=== PATIENT | female | born 1940 | race Caucasian/White ===

== ENCOUNTER 2018-07-18 15:51 | Observation (INO) ==
[2018-07-18] MEDS ORDERED: SODIUM CHLORIDE 0.9% 500 ML IV STA (16:20)
[2018-07-18 16:52] LABS: Basophils # 0.1 10*3/uL (0.0-0.2); Basophils % 1.1 % (0.0-0.8); Eosinophils # 0.2 10*3/uL (0.0-0.87); Eosinophils % 2.2 % (0.00-10.9); Hematocrit 35.5 VOL% (35.7-47.0); Hemoglobin 9.9 GM/DL (12.0-16.0); Immature Granulocytes % 0.3 %; Immature Granulocytes Absolute 0.02 #; Lymphocytes # 1.4 10*3/uL (1.4-4.0); Lymphocytes % 18.8 % (21.3-54.2); Mean Corpuscular HGB Conc 27.9 GM/DL (32-36); Mean Corpuscular Hemoglobin 20 PG (27-34); Mean Corpuscular Volume 71.3 FL (87-102); Mean Platelet Volume 12.2 FL (9.6-12.0); Monocytes # 0.6 10*3/uL (0.11-0.8); Monocytes % 7.8 % (1.7-12.7); Neutrophils # 5.3 10*3/uL (1.4-7.4); Neutrophils % 69.8 % (38.7-73.9); Platelet Count 329 T/CUMM (130-400); Red Blood Count 4.98 MC/CUMM (3.8-5.5); Red Cell Distribution Width 17.1 % (9.3-17.3); White Blood Count 7.6 T/CUMM (4-12)
[2018-07-18 17:02] LABS: INR 1.2; PT Patient Result 12.8 SECS
[2018-07-18 17:03] LABS: Albumin 4.1 G/DL (3.4-5.0); Bilirubin,Total 0.5 MG/DL (0.2-1.0); Osmolality,Calculated 276.8 MOS/KG (273-304); Potassium 3.8 MMOL/L (3.5-5.1); Total Protein 8.1 G/DL (6.4-8.3)
[2018-07-18 17:26] LABS: Anisocytosis 1+; Elliptocytes 1+; Hypochromasia Slight; Microcytosis 1+; Polychromasia Slight; Tear Drop Cells Few
[2018-07-18 18:06] LABS: Apearance,Urine CLEAR (Clear); Bacteria,Urine Occasional /HPF (Few); Bilirubin,Urine Negative (Negative); Blood, Urine Negative (Negative); Glucose,Urine (UA) Negative (Negative); Hyaline Casts,Urine 18 /LPF (0-3); Ketones,Urine Negative (Negative); Mucus,Urine Occasional /LPF (Occasional); Nitrite,Urine Negative (Negative); Protein,Urine Negative; RBC,Urine <1 /HPF (0-4); Squamous Epithelial Cell,Urine Occasional /HPF (0-10); Urine Color Yellow (Yellow); Urine Specific Gravity 1.012 (1.001-1.035); Urine Urobilinogen < 2.0 EU/DL (0.2-1.0); WBC,Urine 1 /HPF (0-6)
[2018-07-18] MEDS ORDERED: LABETALOL 20 MG/4 ML SYRINGE IV PRN (18:38)
[2018-07-18] MEDS ORDERED: SODIUM CHLORIDE 0.9% 1,000 ML IV SCH (19:30)
[2018-07-18] MEDS: SPIRONOLACTONE 25 MG TABLET PO SCH (21:21)
[2018-07-18] MEDS: APIXABAN 5 MG TABLET PO SCH (21:21)
[2018-07-18] MEDS: diphenhydrAMINE CAP 25 MG CAPSULE PO PRN (22:51)
[2018-07-19 04:14] LABS: Basophils # 0.1 10*3/uL (0.0-0.2); Basophils % 1.1 % (0.0-0.8); Eosinophils # 0.2 10*3/uL (0.0-0.87); Eosinophils % 3.5 % (0.00-10.9); Hemoglobin 8.1 GM/DL (12.0-16.0); Immature Granulocytes % 0.2 %; Immature Granulocytes Absolute 0.01 #; Lymphocytes # 1.6 10*3/uL (1.4-4.0); Lymphocytes % 26.1 % (21.3-54.2); Mean Corpuscular HGB Conc 28.2 GM/DL (32-36); Mean Corpuscular Hemoglobin 20 PG (27-34); Mean Corpuscular Volume 71.9 FL (87-102); Monocytes # 0.6 10*3/uL (0.11-0.8); Monocytes % 8.9 % (1.7-12.7); Neutrophils # 3.7 10*3/uL (1.4-7.4); Neutrophils % 60.2 % (38.7-73.9); Platelet Count 240 T/CUMM (130-400); Red Blood Count 3.99 MC/CUMM (3.8-5.5); Red Cell Distribution Width 16.8 % (9.3-17.3); White Blood Count 6.2 T/CUMM (4-12)
[2018-07-19 04:16] LABS: Hematocrit 28.7 VOL% (35.7-47.0)
[2018-07-19 04:38] LABS: Platelet Estimate Normal; Polychromasia Few
[2018-07-19 04:54] LABS: Osmolality,Calculated 276.7 MOS/KG (273-304); Potassium 3.4 MMOL/L (3.5-5.1); Risk Ratio 2.27; Thyroid Stimulating Hormone 2.07 uIU/ml (0.358-3.74); VLDL CHOLESTEROL 15.8 MG/DL
[2018-07-19] MEDS: LEVOTHYROXINE 100 MCG TABLET PO SCH (06:49)
[2018-07-19] MEDS ORDERED: POTASSIUM CHLORIDE 20 MEQ TABLET PO PRN (06:52)
[2018-07-19] MEDS ORDERED: POTASSIUM CHLORIDE RIDER 10 MEQ in PREMIX 1 EACH IV PRN (06:52)
[2018-07-19] MEDS ORDERED: amLODIPine 5 MG TABLET PO SCH (09:00)
[2018-07-19] MEDS ORDERED: ATORVASTATIN 10 MG TABLET PO SCH (09:00)
[2018-07-19] MEDS ORDERED: FUROSEMIDE 20 MG TABLET PO SCH (09:00)
[2018-07-19] MEDS ORDERED: POTASSIUM CHLORIDE 10 MEQ TABLET PO SCH (09:00)
[2018-07-19] MEDS ORDERED: POTASSIUM CHLORIDE 20 MEQ TABLET PO ONE ×2 (10:45)
[2018-07-19] MEDS: MAGNESIUM CHLORIDE 64 MG TABLET PO SCH (11:03)
[2018-07-19] MEDS: PANTOPRAZOLE 40 MG TABLET PO SCH (11:05)
[2018-07-19] MEDS: ASPIRIN EC 81 MG TABLET PO SCH (11:05)
[2018-07-19] MEDS: APIXABAN 5 MG TABLET PO SCH ×2 (11:09→20:47)
[2018-07-19 11:28] LABS: % Iron Saturation 4.3 % (18-50); Ferritin 6.7 ng/ml (8-252)
[2018-07-19 15:12] LABS: Folate > 24.0 NG/ML (5.4-24.0); Vitamin B12 282 PG/ML (211-911)
[2018-07-19] MEDS: SPIRONOLACTONE 25 MG TABLET PO SCH (18:26)
[2018-07-19] MEDS ORDERED: AMIODARONE 200 MG TABLET PO SCH (18:44)
[2018-07-19] MEDS: AMIODARONE 200 MG TABLET PO SCH (19:29)
[2018-07-19] MEDS: CARVEDILOL 3.125 MG TABLET PO SCH (19:29)
[2018-07-19] MEDS: POTASSIUM CHLORIDE 10 MEQ TABLET PO SCH (19:30)
[2018-07-19] MEDS: FERROUS SULFATE 325 MG TABLET PO SCH (20:47)
[2018-07-19] MEDS ORDERED: ROSUVASTATIN 20 MG TABLET PO SCH (21:00)
[2018-07-19] MEDS ORDERED: ATORVASTATIN 20 MG TABLET PO SCH (21:00)
[2018-07-19] MEDS: diphenhydrAMINE CAP 25 MG CAPSULE PO PRN (21:18)
[2018-07-20 04:44] LABS: Calcium 8.1 MG/DL (8.5-10.1); Osmolality,Calculated 276.5 MOS/KG (273-304); Potassium 4.3 MMOL/L (3.5-5.1)
[2018-07-20 05:03] LABS: Basophils # 0.1 10*3/uL (0.0-0.2); Basophils % 0.9 % (0.0-0.8); Eosinophils # 0.3 10*3/uL (0.0-0.87); Eosinophils % 4.1 % (0.00-10.9); Hematocrit 28.3 VOL% (35.7-47.0); Immature Granulocytes % 0.3 %; Immature Granulocytes Absolute 0.02 #; Lymphocytes # 1.6 10*3/uL (1.4-4.0); Lymphocytes % 23.6 % (21.3-54.2); Mean Corpuscular HGB Conc 27.9 GM/DL (32-36); Mean Corpuscular Hemoglobin 20 PG (27-34); Mean Corpuscular Volume 71.8 FL (87-102); Mean Platelet Volume 12.1 FL (9.6-12.0); Monocytes # 0.6 10*3/uL (0.11-0.8); Monocytes % 8.5 % (1.7-12.7); Neutrophils # 4.1 10*3/uL (1.4-7.4); Neutrophils % 62.6 % (38.7-73.9); Platelet Count 236 T/CUMM (130-400); Red Blood Count 3.94 MC/CUMM (3.8-5.5); Red Cell Distribution Width 16.9 % (9.3-17.3); White Blood Count 6.6 T/CUMM (4-12)
[2018-07-20 05:04] LABS: Hemoglobin 7.9 GM/DL (12.0-16.0)
[2018-07-20 05:40] LABS: Acanthocytes Few; Anisocytosis 1+; Elliptocytes Few; Hypochromasia 1+; Microcytosis 1+
[2018-07-20 05:41] LABS: Platelet Estimate Normal
[2018-07-20] MEDS: LEVOTHYROXINE 100 MCG TABLET PO SCH (06:04)
[2018-07-20] MEDS ORDERED: SODIUM CHLORIDE 0.9% 1,000 ML IV SCH (08:00)
[2018-07-20] MEDS ORDERED: MIDAZOLAM 10 MG/2 ML VIAL ONE (08:52)
[2018-07-20] MEDS ORDERED: PROMETHAZINE 25 MG/1 ML VIAL ONE (08:52)
[2018-07-20] MEDS ORDERED: CYANOCOBALAMIN 1000 MCG/1 ML VIAL IM ONE (11:45)
[2018-07-20] MEDS: CARVEDILOL 3.125 MG TABLET PO SCH ×2 (12:58→18:50)
[2018-07-20] MEDS: APIXABAN 5 MG TABLET PO SCH (12:59)
[2018-07-20] MEDS: AMIODARONE 200 MG TABLET PO SCH (12:59)
[2018-07-20] MEDS: FERROUS SULFATE 325 MG TABLET PO SCH (12:59)
[2018-07-20] MEDS: POTASSIUM CHLORIDE 10 MEQ TABLET PO SCH (12:59)
[2018-07-20] MEDS: ASPIRIN EC 81 MG TABLET PO SCH (12:59)
[2018-07-20] MEDS: MAGNESIUM CHLORIDE 64 MG TABLET PO SCH (13:00)
[2018-07-20] MEDS: PANTOPRAZOLE 40 MG TABLET PO SCH (13:00)
[2018-07-20 16:34] VITALS: BP 103/49
== END 2018-07-20 18:44 | disposition home or self-care (01) ==
LOC: N.ED 15:51 → N.EDINP 15:51 → SUATTDRO 18:38 → N.EDINP 19:48 → N.4E 20:35
PROVIDERS: ADMIT Hospitalist; ATTEND Family Medicine

== ENCOUNTER 2018-07-28 06:00 | Observation (INO) ==
[2018-07-28] MEDS ORDERED: FUROSEMIDE 100 MG/10 ML VIAL IV STA (06:21)
[2018-07-28 07:14] LABS: Albumin 3.6 G/DL (3.4-5.0); Bilirubin,Total 0.5 MG/DL (0.2-1.0); Calcium 8.5 MG/DL (8.5-10.1); Osmolality,Calculated 274.7 MOS/KG (273-304); Potassium 4.3 MMOL/L (3.5-5.1); Total Protein 6.7 G/DL (6.4-8.3)
[2018-07-28 07:16] LABS: Apearance,Urine CLEAR (Clear); Bilirubin,Urine Negative (Negative); Blood, Urine Negative (Negative); Glucose,Urine (UA) Negative (Negative); Ketones,Urine Negative (Negative); Nitrite,Urine Negative (Negative); Protein,Urine Negative; RBC,Urine 1 /HPF (0-4); Urine Color Straw (Yellow); Urine Specific Gravity 1.005 (1.001-1.035); Urine Urobilinogen < 2.0 EU/DL (0.2-1.0); WBC,Urine 1 /HPF (0-6)
[2018-07-28 08:20] LABS: Basophils # 0.1 10*3/uL (0.0-0.2); Basophils % 1.1 % (0.0-0.8); Eosinophils # 0.2 10*3/uL (0.0-0.87); Eosinophils % 3.4 % (0.00-10.9); Hematocrit 32.9 VOL% (35.7-47.0); Hemoglobin 9.3 GM/DL (12.0-16.0); Immature Granulocytes % 0.6 %; Immature Granulocytes Absolute 0.04 #; Lymphocytes # 0.9 10*3/uL (1.4-4.0); Lymphocytes % 13.7 % (21.3-54.2); Mean Corpuscular HGB Conc 28.3 GM/DL (32-36); Mean Corpuscular Hemoglobin 21 PG (27-34); Mean Corpuscular Volume 73.3 FL (87-102); Mean Platelet Volume 11.6 FL (9.6-12.0); Monocytes # 0.4 10*3/uL (0.11-0.8); Monocytes % 6.6 % (1.7-12.7); Neutrophils # 4.9 10*3/uL (1.4-7.4); Neutrophils % 74.6 % (38.7-73.9); Platelet Count 280 T/CUMM (130-400); Red Blood Count 4.49 MC/CUMM (3.8-5.5); Red Cell Distribution Width 20.1 % (9.3-17.3); White Blood Count 6.5 T/CUMM (4-12)
[2018-07-28 08:23] LABS: Elliptocytes Few; Hypochromasia 1+; Microcytosis 1+; Platelet Estimate Adequate
[2018-07-28] MEDS ORDERED: ACETAMINOPHEN 325 MG TABLET PO PRN (10:16)
[2018-07-28] MEDS ORDERED: DOCUSATE SODIUM 100 MG CAPSULE PO PRN (10:16)
[2018-07-28] MEDS ORDERED: ONDANSETRON 4 MG/2 ML VIAL IV PRN (10:16)
[2018-07-28] MEDS ORDERED: ENOXAPARIN 40 MG/0.4 ML SYRINGE SUBCUT SCH (10:30)
[2018-07-28] MEDS ORDERED: FUROSEMIDE 40 MG/4 ML VIAL IV SCH (16:00)
[2018-07-28] MEDS: CARVEDILOL 3.125 MG TABLET PO SCH (19:03)
[2018-07-28] MEDS ORDERED: ZALEPLON 5 MG CAPSULE PO ONE (20:34)
[2018-07-28] MEDS: APIXABAN 5 MG TABLET PO SCH (21:15)
[2018-07-28] MEDS: FERROUS SULFATE 325 MG TABLET PO SCH (21:15)
[2018-07-29 06:07] LABS: Calcium 8.3 MG/DL (8.5-10.1); Osmolality,Calculated 279.4 MOS/KG (273-304); Potassium 3.2 MMOL/L (3.5-5.1)
[2018-07-29 06:16] LABS: Basophils # 0.1 10*3/uL (0.0-0.2); Basophils % 0.7 % (0.0-0.8); Eosinophils # 0.3 10*3/uL (0.0-0.87); Eosinophils % 4.1 % (0.00-10.9); Hematocrit 28.5 VOL% (35.7-47.0); Immature Granulocytes % 0.6 %; Immature Granulocytes Absolute 0.04 #; Lymphocytes # 1.6 10*3/uL (1.4-4.0); Lymphocytes % 23.9 % (21.3-54.2); Mean Corpuscular HGB Conc 27.7 GM/DL (32-36); Mean Corpuscular Hemoglobin 20 PG (27-34); Mean Corpuscular Volume 73.3 FL (87-102); Mean Platelet Volume 11.9 FL (9.6-12.0); Monocytes # 0.6 10*3/uL (0.11-0.8); Monocytes % 9.1 % (1.7-12.7); Neutrophils # 4.2 10*3/uL (1.4-7.4); Neutrophils % 61.6 % (38.7-73.9); Platelet Count 250 T/CUMM (130-400); Red Blood Count 3.89 MC/CUMM (3.8-5.5); Red Cell Distribution Width 19.9 % (9.3-17.3); White Blood Count 6.8 T/CUMM (4-12)
[2018-07-29 06:18] LABS: Hemoglobin 7.9 GM/DL (12.0-16.0)
[2018-07-29 06:24] LABS: Platelet Estimate Decreased
[2018-07-29 06:25] LABS: Polychromasia Few
[2018-07-29] MEDS ORDERED: LEVOTHYROXINE 100 MCG TABLET PO SCH (07:00)
[2018-07-29] MEDS ORDERED: POTASSIUM CHLORIDE 20 MEQ TABLET PO ONE (07:57)
[2018-07-29] MEDS: CARVEDILOL 3.125 MG TABLET PO SCH (08:45)
[2018-07-29] MEDS: APIXABAN 5 MG TABLET PO SCH (08:46)
[2018-07-29] MEDS: FERROUS SULFATE 325 MG TABLET PO SCH (08:47)
[2018-07-29] MEDS ORDERED: PANTOPRAZOLE 40 MG TABLET PO SCH (09:00)
[2018-07-29] MEDS ORDERED: POTASSIUM CHLORIDE 10 MEQ TABLET PO SCH (09:00)
[2018-07-29] MEDS ORDERED: MAGNESIUM CHLORIDE 64 MG TABLET PO SCH (09:00)
[2018-07-29] MEDS ORDERED: ASPIRIN EC 81 MG TABLET PO SCH (09:00)
[2018-07-29] MEDS ORDERED: FUROSEMIDE 40 MG/4 ML VIAL IV SCH (09:00)
[2018-07-29] MEDS ORDERED: ATORVASTATIN 10 MG TABLET PO SCH (09:00)
[2018-07-29] MEDS ORDERED: AMIODARONE 200 MG TABLET PO SCH (09:00)
[2018-07-29 12:15] VITALS: BP 126/50
== END 2018-07-29 12:40 | disposition home or self-care (01) ==
LOC: N.ED 06:00 → N.EDINP 06:00 → INTOOBSV 10:15 → OBSVTOIN 10:15 → N.4E 14:20
PROVIDERS: ADMIT Internal Medicine; ATTEND Internal Medicine

== ENCOUNTER 2018-08-11 07:59 | Inpatient (IN) ==
[2018-08-11] MEDS ORDERED: ONDANSETRON 4 MG/2 ML VIAL IV STA (09:45)
[2018-08-11] MEDS ORDERED: ALBUTEROL/IPRATROPIUM 3 ML NEB RESP TX STA (09:45)
[2018-08-11 09:54] LABS: Neutrophils # 3.9 10*3/uL (1.4-7.4)
[2018-08-11 09:57] LABS: INR 1.2; PT Patient Result 12.8 SECS
[2018-08-11 10:00] LABS: Basophils # 0.1 10*3/uL (0.0-0.2); Basophils % 1.4 % (0.0-0.8); Eosinophils # 0.2 10*3/uL (0.0-0.87); Eosinophils % 4.1 % (0.00-10.9); Hematocrit 35.7 VOL% (35.7-47.0); Hemoglobin 9.6 GM/DL (12.0-16.0); Immature Granulocytes % 0.5 %; Immature Granulocytes Absolute 0.03 #; Lymphocytes # 1.2 10*3/uL (1.4-4.0); Lymphocytes % 20.1 % (21.3-54.2); Mean Corpuscular HGB Conc 26.9 GM/DL (32-36); Mean Corpuscular Hemoglobin 21 PG (27-34); Mean Corpuscular Volume 77.9 FL (87-102); Mean Platelet Volume 11.8 FL (9.6-12.0); Monocytes # 0.4 10*3/uL (0.11-0.8); Monocytes % 7.5 % (1.7-12.7); Neutrophils % 66.4 % (38.7-73.9); Platelet Count 274 T/CUMM (130-400); Red Blood Count 4.58 MC/CUMM (3.8-5.5); Red Cell Distribution Width 22.5 % (9.3-17.3); White Blood Count 5.9 T/CUMM (4-12)
[2018-08-11 10:12] LABS: Albumin 3.6 G/DL (3.4-5.0); Bilirubin,Total 0.5 MG/DL (0.2-1.0); Calcium 8.8 MG/DL (8.5-10.1); Osmolality,Calculated 279.4 MOS/KG (273-304); Potassium 4.2 MMOL/L (3.5-5.1); Total Protein 7.2 G/DL (6.4-8.3)
[2018-08-11 10:13] LABS: Hypochromasia 1+
[2018-08-11 10:14] LABS: Elliptocytes Few; Platelet Estimate Adequate
[2018-08-11 10:15] LABS: Microcytosis 1+
[2018-08-11 10:40] LABS: Apearance,Urine Slightly Hazy (Clear); Bilirubin,Urine Negative (Negative); Blood, Urine Negative (Negative); Glucose,Urine (UA) Negative (Negative); Ketones,Urine Negative (Negative); Mucus,Urine Occasional /LPF (Occasional); Nitrite,Urine Negative (Negative); Protein,Urine Negative; Squamous Epithelial Cell,Urine Occasional /HPF (0-10); Urine Color Yellow (Yellow); Urine Specific Gravity 1.012 (1.001-1.035); Urine Urobilinogen < 2.0 EU/DL (0.2-1.0); WBC,Urine 1 /HPF (0-6)
[2018-08-11] MEDS ORDERED: methylPREDNISolone SOD SUC 125 MG/2 ML VIAL IV STA (10:49)
[2018-08-11] MEDS ORDERED: ALBUTEROL/IPRATROPIUM 3 ML NEB RESP TX PRN (15:03)
[2018-08-11] MEDS: CARVEDILOL 3.125 MG TABLET PO SCH (16:36)
[2018-08-11] MEDS ORDERED: diphenhydrAMINE CAP 50 MG CAPSULE PO ONE (20:46)
[2018-08-11] MEDS: FERROUS SULFATE 325 MG TABLET PO SCH (21:20)
[2018-08-11] MEDS: ACETAMINOPHEN 325 MG TABLET PO PRN (21:20)
[2018-08-11] MEDS: APIXABAN 5 MG TABLET PO SCH (21:20)
[2018-08-12 06:19] LABS: Albumin 3.3 G/DL (3.4-5.0); Bilirubin,Total 0.8 MG/DL (0.2-1.0); Calcium 8.6 MG/DL (8.5-10.1); Osmolality,Calculated 278.5 MOS/KG (273-304); Total Protein 6.5 G/DL (6.4-8.3)
[2018-08-12 06:33] LABS: Basophils % 0.2 % (0.0-0.8); Hematocrit 30.1 VOL% (35.7-47.0); Hemoglobin 8.5 GM/DL (12.0-16.0); Immature Granulocytes % 0.7 %; Immature Granulocytes Absolute 0.07 #; Lymphocytes # 0.6 10*3/uL (1.4-4.0); Lymphocytes % 5.6 % (21.3-54.2); Mean Corpuscular HGB Conc 28.2 GM/DL (32-36); Mean Corpuscular Hemoglobin 21 PG (27-34); Mean Corpuscular Volume 75.1 FL (87-102); Mean Platelet Volume 12.2 FL (9.6-12.0); Monocytes # 0.3 10*3/uL (0.11-0.8); Monocytes % 2.7 % (1.7-12.7); Neutrophils # 9.1 10*3/uL (1.4-7.4); Neutrophils % 90.8 % (38.7-73.9); Platelet Count 242 T/CUMM (130-400); Red Blood Count 4.01 MC/CUMM (3.8-5.5); Red Cell Distribution Width 21.9 % (9.3-17.3)
[2018-08-12] MEDS: LEVOTHYROXINE 100 MCG TABLET PO SCH (06:35)
[2018-08-12 06:36] LABS: Lymphocytes 2 % (20-55); Segmented Neutrophils 97 % (50-85); Total Cells Counted 100
[2018-08-12 06:37] LABS: Elliptocytes Few; Hypochromasia 1+; Microcytosis Slight; Platelet Estimate Adequate
[2018-08-12] MEDS ORDERED: FUROSEMIDE 40 MG/4 ML VIAL IV ONE (08:23)
[2018-08-12] MEDS: ATORVASTATIN 10 MG TABLET PO SCH (09:00)
[2018-08-12] MEDS: MAGNESIUM CHLORIDE 64 MG TABLET PO SCH (09:00)
[2018-08-12] MEDS: APIXABAN 5 MG TABLET PO SCH ×2 (09:01→21:19)
[2018-08-12] MEDS: FUROSEMIDE 20 MG TABLET PO SCH (09:01)
[2018-08-12] MEDS: PANTOPRAZOLE 40 MG TABLET PO SCH (09:02)
[2018-08-12] MEDS: CARVEDILOL 3.125 MG TABLET PO SCH ×2 (09:05→19:26)
[2018-08-12] MEDS: FERROUS SULFATE 325 MG TABLET PO SCH ×2 (09:05→21:19)
[2018-08-12] MEDS: AMIODARONE 200 MG TABLET PO SCH (09:05)
[2018-08-12] MEDS: methylPREDNISolone SOD SUC 40 MG/1 ML VIAL IV SCH ×2 (09:06→21:20)
[2018-08-12] MEDS: ASPIRIN EC 81 MG TABLET PO SCH (09:07)
[2018-08-12] MEDS: DOCUSATE SODIUM 100 MG CAPSULE PO PRN (09:10)
[2018-08-12] MEDS: POTASSIUM CHLORIDE 10 MEQ TABLET PO SCH (10:57)
[2018-08-12] MEDS: BUDESONIDE/FORMOTEROL 160-4.5 INHALER 6 GM INH SCH ×2 (10:57→21:20)
[2018-08-12] MEDS: ACETAMINOPHEN 325 MG TABLET PO PRN (21:19)
[2018-08-13 05:49] LABS: Alanine Aminotransferase 25 U/L (13-56); Albumin 3.3 G/DL (3.4-5.0); Alkaline Phosphatase 76 U/L (45-117); Aspartate Amino Transferase 16 U/L (0-37); Bilirubin,Total < 0.39 MG/DL (0.2-1.0); Blood Urea Nitrogen 24 MG/DL (7-18); Calcium 8.4 MG/DL (8.5-10.1); Glucose 138 MG/DL (74-106); Osmolality,Calculated 278.8 MOS/KG (273-304); Potassium 4.4 MMOL/L (3.5-5.1); Sodium 137 MMOL/L (136-145); Total Protein 6.6 G/DL (6.4-8.3)
[2018-08-13 05:57] LABS: Basophils % 0.1 % (0.0-0.8); Hematocrit 30.6 VOL% (35.7-47.0); Immature Granulocytes % 1.2 %; Immature Granulocytes Absolute 0.18 #; Lymphocytes # 0.5 10*3/uL (1.4-4.0); Lymphocytes % 3.6 % (21.3-54.2); Mean Corpuscular HGB Conc 27.8 GM/DL (32-36); Mean Corpuscular Hemoglobin 21 PG (27-34); Mean Corpuscular Volume 76.7 FL (87-102); Mean Platelet Volume 11.9 FL (9.6-12.0); Monocytes # 0.3 10*3/uL (0.11-0.8); Monocytes % 1.7 % (1.7-12.7); Neutrophils # 14.1 10*3/uL (1.4-7.4); Neutrophils % 93.4 % (38.7-73.9); Platelet Count 272 T/CUMM (130-400); Red Blood Count 3.99 MC/CUMM (3.8-5.5); Red Cell Distribution Width 22.3 % (9.3-17.3); White Blood Count 15.1 T/CUMM (4-12)
[2018-08-13 06:05] LABS: Hemoglobin 8.5 GM/DL (12.0-16.0)
[2018-08-13 06:10] LABS: Hypochromasia 1+; Lymphocytes 4 % (20-55); Microcytosis Slight; Ovalocytes Slight; Platelet Estimate Adequate; Segmented Neutrophils 96 % (50-85); Total Cells Counted 100
[2018-08-13] MEDS: LEVOTHYROXINE 100 MCG TABLET PO SCH (06:38)
[2018-08-13] MEDS: POTASSIUM CHLORIDE 10 MEQ TABLET PO SCH (09:01)
[2018-08-13] MEDS: DOCUSATE SODIUM 100 MG CAPSULE PO PRN (09:01)
[2018-08-13] MEDS: FUROSEMIDE 20 MG TABLET PO SCH (09:01)
[2018-08-13] MEDS: MAGNESIUM CHLORIDE 64 MG TABLET PO SCH (09:01)
[2018-08-13] MEDS: PANTOPRAZOLE 40 MG TABLET PO SCH (09:01)
[2018-08-13] MEDS: ASPIRIN EC 81 MG TABLET PO SCH (09:01)
[2018-08-13] MEDS: APIXABAN 5 MG TABLET PO SCH ×2 (09:01→21:16)
[2018-08-13] MEDS: FERROUS SULFATE 325 MG TABLET PO SCH ×2 (09:02→21:16)
[2018-08-13] MEDS: CARVEDILOL 3.125 MG TABLET PO SCH ×2 (09:02→17:45)
[2018-08-13] MEDS: AMIODARONE 200 MG TABLET PO SCH (09:02)
[2018-08-13] MEDS: BUDESONIDE/FORMOTEROL 160-4.5 INHALER 6 GM INH SCH ×2 (09:03→22:17)
[2018-08-13] MEDS: methylPREDNISolone SOD SUC 40 MG/1 ML VIAL IV SCH ×2 (09:03→21:16)
[2018-08-13] MEDS: FUROSEMIDE 40 MG TABLET PO SCH (14:32)
[2018-08-13] MEDS: ATORVASTATIN 10 MG TABLET PO SCH (14:33)
[2018-08-13] MEDS: ACETAMINOPHEN 325 MG TABLET PO PRN (22:16)
[2018-08-14 06:20] LABS: Albumin 3.3 G/DL (3.4-5.0); Bilirubin,Total 0.7 MG/DL (0.2-1.0); Calcium 8.3 MG/DL (8.5-10.1); Osmolality,Calculated 282.7 MOS/KG (273-304); Potassium 4.4 MMOL/L (3.5-5.1); Total Protein 6.3 G/DL (6.4-8.3)
[2018-08-14] MEDS: LEVOTHYROXINE 100 MCG TABLET PO SCH (06:20)
[2018-08-14 06:52] LABS: Basophils % 0.1 % (0.0-0.8); Hematocrit 31.2 VOL% (35.7-47.0); Hemoglobin 8.6 GM/DL (12.0-16.0); Immature Granulocytes % 1.1 %; Immature Granulocytes Absolute 0.16 #; Lymphocytes # 0.6 10*3/uL (1.4-4.0); Lymphocytes % 4.3 % (21.3-54.2); Mean Corpuscular HGB Conc 27.6 GM/DL (32-36); Mean Corpuscular Hemoglobin 21 PG (27-34); Mean Corpuscular Volume 77.2 FL (87-102); Mean Platelet Volume 11.8 FL (9.6-12.0); Monocytes # 0.4 10*3/uL (0.11-0.8); Neutrophils # 13.3 10*3/uL (1.4-7.4); Neutrophils % 91.5 % (38.7-73.9); Platelet Count 262 T/CUMM (130-400); Red Blood Count 4.04 MC/CUMM (3.8-5.5); Red Cell Distribution Width 22.7 % (9.3-17.3); White Blood Count 14.5 T/CUMM (4-12)
[2018-08-14 06:59] LABS: Hypochromasia 2+; Lymphocytes 5 % (20-55); Segmented Neutrophils 94 % (50-85); Total Cells Counted 100
[2018-08-14 07:00] LABS: Acanthocytes Few; Elliptocytes Few; Microcytosis 1+; Polychromasia Slight
[2018-08-14 07:01] LABS: Platelet Estimate Normal; Tear Drop Cells Slight
[2018-08-14 07:13] VITALS: BP 150/70
[2018-08-14] MEDS: DOCUSATE SODIUM 100 MG CAPSULE PO PRN (09:18)
[2018-08-14] MEDS: FERROUS SULFATE 325 MG TABLET PO SCH (09:19)
[2018-08-14] MEDS: POTASSIUM CHLORIDE 10 MEQ TABLET PO SCH (09:19)
[2018-08-14] MEDS: FUROSEMIDE 40 MG TABLET PO SCH (09:19)
[2018-08-14] MEDS: CARVEDILOL 3.125 MG TABLET PO SCH (09:20)
[2018-08-14] MEDS: ASPIRIN EC 81 MG TABLET PO SCH (09:20)
[2018-08-14] MEDS: AMIODARONE 200 MG TABLET PO SCH (09:20)
[2018-08-14] MEDS: MAGNESIUM CHLORIDE 64 MG TABLET PO SCH (09:21)
[2018-08-14] MEDS: APIXABAN 5 MG TABLET PO SCH (09:21)
[2018-08-14] MEDS: ATORVASTATIN 10 MG TABLET PO SCH (09:21)
[2018-08-14] MEDS: PANTOPRAZOLE 40 MG TABLET PO SCH (09:21)
[2018-08-14] MEDS: BUDESONIDE/FORMOTEROL 160-4.5 INHALER 6 GM INH SCH (09:21)
[2018-08-14] MEDS: methylPREDNISolone SOD SUC 40 MG/1 ML VIAL IV SCH (09:22)
== END 2018-08-14 14:36 | disposition home or self-care (01) | DRG 291 ==
LOC: N.ED 07:59 → N.EDINP 11:26 → SUATTDRO 11:26 → N.EDINP 14:00 → N.5E 14:12
PROVIDERS: ADMIT Internal Medicine Cardiovascular Disease; ATTEND Internal Medicine

== ENCOUNTER 2019-03-24 21:56 | Observation (INO) ==
[2019-03-24] MEDS ORDERED: FUROSEMIDE 100 MG/10 ML VIAL IV STA (22:37)
[2019-03-24 22:46] LABS: Basophils % 0.3 % (0.0-0.8); Eosinophils # 0.1 10*3/uL (0.0-0.87); Hematocrit 41.2 VOL% (35.7-47.0); Hemoglobin 13.2 GM/DL (12.0-16.0); Immature Granulocytes % 0.4 %; Immature Granulocytes Absolute 0.04 #; Lymphocytes # 0.4 10*3/uL (1.4-4.0); Lymphocytes % 4.1 % (21.3-54.2); Mean Corpuscular Volume 91.6 FL (87-102); Mean Platelet Volume 13.2 FL (9.6-12.0); Monocytes % 4.3 % (1.7-12.7); Neutrophils % 89.9 % (38.7-73.9); Platelet Count 152 T/CUMM (130-400); Red Cell Distribution Width 14.2 % (9.3-17.3); White Blood Count 9.5 T/CUMM (4-12)
[2019-03-24 22:57] LABS: Albumin 3.7 G/DL (3.4-5.0); Bilirubin,Total 0.6 MG/DL (0.2-1.0); Calcium 9.1 MG/DL (8.5-10.1); Osmolality,Calculated 278.7 MOS/KG (273-304); Total Protein 7.1 G/DL (6.4-8.3)
[2019-03-25 00:09] LABS: Band Neutrophils 1 % (0-10); Lymphocytes 4 % (20-55); Platelet Estimate Adequate; Segmented Neutrophils 91 % (50-85); Total Cells Counted 100
[2019-03-25] MEDS ORDERED: ACETAMINOPHEN 325 MG TABLET PO PRN (00:20)
[2019-03-25] MEDS ORDERED: ONDANSETRON 4 MG/2 ML VIAL IV PRN (00:20)
[2019-03-25] MEDS ORDERED: FUROSEMIDE 40 MG/4 ML VIAL IV SCH (00:30)
[2019-03-25 04:24] LABS: Basophils % 0.4 % (0.0-0.8); Eosinophils # 0.1 10*3/uL (0.0-0.87); Eosinophils % 1.3 % (0.00-10.9); Hematocrit 39.5 VOL% (35.7-47.0); Hemoglobin 12.6 GM/DL (12.0-16.0); Immature Granulocytes Absolute 0.08 #; Lymphocytes # 0.5 10*3/uL (1.4-4.0); Mean Corpuscular HGB Conc 31.9 GM/DL (32-36); Mean Corpuscular Volume 91.9 FL (87-102); Mean Platelet Volume 13.1 FL (9.6-12.0); Monocytes % 5.5 % (1.7-12.7); Neutrophils % 84.8 % (38.7-73.9); Platelet Count 144 T/CUMM (130-400); Red Cell Distribution Width 14.3 % (9.3-17.3); White Blood Count 7.8 T/CUMM (4-12)
[2019-03-25 04:46] LABS: Albumin 3.7 G/DL (3.4-5.0); Bilirubin,Total 0.9 MG/DL (0.2-1.0); Osmolality,Calculated 285.1 MOS/KG (273-304); Total Protein 6.4 G/DL (6.4-8.3)
[2019-03-25] MEDS: PANTOPRAZOLE 40 MG TABLET PO SCH (08:27)
[2019-03-25] MEDS ORDERED: AZITHROMYCIN INJ 500 MG in SODIUM CHLORIDE 0.9% 250 ML IV ONE (10:55)
[2019-03-25] MEDS: ATORVASTATIN 10 MG TABLET PO SCH (11:31)
[2019-03-25] MEDS: APIXABAN 5 MG TABLET PO SCH ×2 (11:31→20:25)
[2019-03-25] MEDS: POTASSIUM CHLORIDE 10 MEQ TABLET PO SCH (11:31)
[2019-03-25] MEDS: ASPIRIN EC 81 MG TABLET PO SCH (11:31)
[2019-03-25] MEDS: MAGNESIUM CHLORIDE 64 MG TABLET PO SCH (11:31)
[2019-03-25] MEDS: AMIODARONE 200 MG TABLET PO SCH (11:31)
[2019-03-25] MEDS: carvediloL 3.125 MG TABLET PO SCH (16:08)
[2019-03-25] MEDS: FUROSEMIDE 40 MG/4 ML VIAL IV SCH (22:06)
[2019-03-26] MEDS ORDERED: LEVOTHYROXINE 100 MCG TABLET PO SCH (07:00)
[2019-03-26] MEDS: FUROSEMIDE 40 MG/4 ML VIAL IV SCH (08:58)
[2019-03-26] MEDS: MAGNESIUM CHLORIDE 64 MG TABLET PO SCH (08:58)
[2019-03-26] MEDS: AMIODARONE 200 MG TABLET PO SCH (08:58)
[2019-03-26] MEDS: ASPIRIN EC 81 MG TABLET PO SCH (08:58)
[2019-03-26] MEDS: carvediloL 3.125 MG TABLET PO SCH (08:58)
[2019-03-26] MEDS: PANTOPRAZOLE 40 MG TABLET PO SCH (08:58)
[2019-03-26] MEDS: POTASSIUM CHLORIDE 10 MEQ TABLET PO SCH (08:58)
[2019-03-26] MEDS: APIXABAN 5 MG TABLET PO SCH (08:58)
[2019-03-26] MEDS: ATORVASTATIN 10 MG TABLET PO SCH (08:59)
[2019-03-26] MEDS ORDERED: AZITHROMYCIN INJ 250 MG in SODIUM CHLORIDE 0.9% 250 ML IV SCH (11:00)
[2019-03-26 12:03] VITALS: BP 130/53
== END 2019-03-26 13:24 | disposition home or self-care (01) ==
LOC: N.EDINP 21:56 → N.ED 21:56 → N.TELEN 03-25 00:55
PROVIDERS: ADMIT Family Medicine; ATTEND Family Medicine

== ENCOUNTER 2019-10-28 04:06 | Inpatient (IN) ==
[2019-10-28] MEDS ORDERED: ALBUTEROL/IPRATROPIUM 3 ML NEB RESP TX STA (04:52)
[2019-10-28 05:50] LABS: Basophils # 0.1 10*3/uL (0.0-0.2); Basophils % 0.8 % (0.0-0.8); Eosinophils # 0.3 10*3/uL (0.0-0.87); Eosinophils % 4.6 % (0.00-10.9); Hemoglobin 11.7 GM/DL (12.0-16.0); Immature Granulocytes % 0.5 %; Immature Granulocytes Absolute 0.03 #; Lymphocytes # 1.6 10*3/uL (1.4-4.0); Lymphocytes % 25.6 % (21.3-54.2); Mean Corpuscular Volume 90.1 FL (87-102); Mean Platelet Volume 13.2 FL (9.6-12.0); Monocytes % 8.2 % (1.7-12.7); Neutrophils % 60.3 % (38.7-73.9); Platelet Count 188 T/CUMM (130-400); Red Blood Count 4.33 MC/CUMM (3.8-5.5); Red Cell Distribution Width 14.8 % (9.3-17.3); White Blood Count 6.2 T/CUMM (4-12)
[2019-10-28] MEDS ORDERED: FUROSEMIDE 100 MG/10 ML VIAL IV STA (05:50)
[2019-10-28 05:53] LABS: Albumin 3.3 G/DL (3.4-5.0); Bilirubin,Total 0.5 MG/DL (0.2-1.0); Total Protein 7.4 G/DL (6.4-8.3)
[2019-10-28] MEDS ORDERED: FUROSEMIDE 40 MG/4 ML VIAL IV STA (05:55)
[2019-10-28] MEDS ORDERED: ONDANSETRON 4 MG/2 ML VIAL IV PRN (07:28)
[2019-10-28] MEDS ORDERED: MAGNESIUM SULF RIDER 2 GM in PREMIX 1 EACH IV PRN (07:28)
[2019-10-28] MEDS ORDERED: MAGNESIUM SULF RIDER 4 GM in PREMIX 1 EACH IV PRN (07:28)
[2019-10-28] MEDS ORDERED: MORPHINE 4 MG/1 ML VIAL IV PRN (07:28)
[2019-10-28] MEDS ORDERED: ENOXAPARIN 40 MG/0.4 ML SYRINGE SUBCUT SCH (09:00)
[2019-10-28] MEDS: POTASSIUM CHLORIDE 20 MEQ TABLET PO PRN (10:50)
[2019-10-28] MEDS ORDERED: ALBUTEROL/IPRATROPIUM 3 ML NEB RESP TX ONE (10:55)
[2019-10-28] MEDS: PANTOPRAZOLE 40 MG TABLET PO SCH (11:17)
[2019-10-28] MEDS ORDERED: ALBUTEROL 2.5 MG/3 ML NEB RESP TX PRN (11:57)
[2019-10-28] MEDS ORDERED: ACETAMINOPHEN 325 MG TABLET PO PRN (11:57)
[2019-10-28 12:00] LABS: Hypochromasia 2+; Ovalocytes Few; Polychromasia Slight; Schistocytes Slight
[2019-10-28 12:01] LABS: Platelet Estimate Adequate
[2019-10-28] MEDS: ALBUTEROL/IPRATROPIUM 3 ML NEB RESP TX SCH ×2 (12:02→19:15)
[2019-10-28] MEDS: LOSARTAN 25 MG TABLET PO SCH (14:33)
[2019-10-28] MEDS: carvediloL 3.125 MG TABLET PO SCH (17:45)
[2019-10-28] MEDS: ASCORBIC ACID 500 MG TABLET PO SCH (21:53)
[2019-10-28] MEDS: APIXABAN 5 MG TABLET PO SCH (21:53)
[2019-10-29] MEDS: ALBUTEROL/IPRATROPIUM 3 ML NEB RESP TX SCH ×4 (01:00→19:22)
[2019-10-29 05:39] LABS: Basophils # 0.1 10*3/uL (0.0-0.2); Eosinophils # 0.3 10*3/uL (0.0-0.87); Eosinophils % 4.1 % (0.00-10.9); Hematocrit 33.7 VOL% (35.7-47.0); Hemoglobin 10.1 GM/DL (12.0-16.0); Immature Granulocytes % 0.3 %; Immature Granulocytes Absolute 0.02 #; Lymphocytes # 1.2 10*3/uL (1.4-4.0); Lymphocytes % 20.2 % (21.3-54.2); Mean Corpuscular Volume 89.4 FL (87-102); Mean Platelet Volume 12.5 FL (9.6-12.0); Monocytes % 9.6 % (1.7-12.7); Neutrophils % 64.8 % (38.7-73.9); Platelet Count 162 T/CUMM (130-400); Red Blood Count 3.77 MC/CUMM (3.8-5.5); Red Cell Distribution Width 14.7 % (9.3-17.3); White Blood Count 6.1 T/CUMM (4-12)
[2019-10-29] MEDS: LEVOTHYROXINE 88 MCG TABLET PO SCH (06:20)
[2019-10-29 06:23] LABS: Risk Ratio 2.47; VLDL CHOLESTEROL 12.4 MG/DL
[2019-10-29 06:30] LABS: Calcium 8.8 MG/DL (8.5-10.1); Osmolality,Calculated 273.8 MOS/KG (273-304)
[2019-10-29] MEDS ORDERED: PANTOPRAZOLE 40 MG TABLET PO SCH (09:00)
[2019-10-29] MEDS: POTASSIUM CHLORIDE 20 MEQ TABLET PO PRN (09:23)
[2019-10-29] MEDS: POTASSIUM CHLORIDE 10 MEQ TABLET PO SCH (09:24)
[2019-10-29] MEDS: ASPIRIN EC 81 MG TABLET PO SCH (09:24)
[2019-10-29] MEDS: carvediloL 3.125 MG TABLET PO SCH ×2 (09:25→16:44)
[2019-10-29] MEDS: APIXABAN 5 MG TABLET PO SCH (09:25)
[2019-10-29] MEDS: PANTOPRAZOLE 40 MG TABLET PO SCH (09:25)
[2019-10-29] MEDS: ATORVASTATIN 10 MG TABLET PO SCH (09:25)
[2019-10-29] MEDS: LOSARTAN 25 MG TABLET PO SCH (09:25)
[2019-10-29] MEDS: ASCORBIC ACID 500 MG TABLET PO SCH ×2 (09:25→21:04)
[2019-10-29] MEDS: FUROSEMIDE 40 MG/4 ML VIAL IV SCH (09:28)
[2019-10-29] MEDS: MAGNESIUM CHLORIDE 64 MG TABLET PO SCH (09:30)
[2019-10-29] MEDS: AMIODARONE 200 MG TABLET PO SCH (09:39)
[2019-10-30] MEDS: ALBUTEROL/IPRATROPIUM 3 ML NEB RESP TX SCH ×4 (00:53→21:14)
[2019-10-30] MEDS: LEVOTHYROXINE 88 MCG TABLET PO SCH (06:37)
[2019-10-30] MEDS: PANTOPRAZOLE 40 MG TABLET PO SCH (09:06)
[2019-10-30] MEDS: LOSARTAN 25 MG TABLET PO SCH (09:06)
[2019-10-30] MEDS: POTASSIUM CHLORIDE 10 MEQ TABLET PO SCH (09:06)
[2019-10-30] MEDS: ATORVASTATIN 10 MG TABLET PO SCH (09:06)
[2019-10-30] MEDS: MAGNESIUM CHLORIDE 64 MG TABLET PO SCH (09:06)
[2019-10-30] MEDS: ASCORBIC ACID 500 MG TABLET PO SCH ×2 (09:07→21:16)
[2019-10-30] MEDS: FUROSEMIDE 40 MG/4 ML VIAL IV SCH (09:07)
[2019-10-30] MEDS: carvediloL 3.125 MG TABLET PO SCH ×2 (09:07→16:04)
[2019-10-30] MEDS: ASPIRIN EC 81 MG TABLET PO SCH (09:07)
[2019-10-30] MEDS: AMIODARONE 200 MG TABLET PO SCH (09:07)
[2019-10-31] MEDS: ALBUTEROL/IPRATROPIUM 3 ML NEB RESP TX SCH ×4 (01:50→19:28)
[2019-10-31 06:00] LABS: Calcium 8.6 MG/DL (8.5-10.1); Osmolality,Calculated 277.8 MOS/KG (273-304)
[2019-10-31] MEDS: LEVOTHYROXINE 88 MCG TABLET PO SCH (06:06)
[2019-10-31] MEDS: POTASSIUM CHLORIDE 10 MEQ TABLET PO SCH (09:32)
[2019-10-31] MEDS: AMIODARONE 200 MG TABLET PO SCH (09:33)
[2019-10-31] MEDS: ASCORBIC ACID 500 MG TABLET PO SCH ×2 (09:33→21:56)
[2019-10-31] MEDS: PANTOPRAZOLE 40 MG TABLET PO SCH (09:33)
[2019-10-31] MEDS: MAGNESIUM CHLORIDE 64 MG TABLET PO SCH (09:34)
[2019-10-31] MEDS: ATORVASTATIN 10 MG TABLET PO SCH (09:34)
[2019-10-31] MEDS: carvediloL 3.125 MG TABLET PO SCH ×2 (09:34→16:57)
[2019-10-31] MEDS: FUROSEMIDE 40 MG TABLET PO SCH (09:34)
[2019-10-31] MEDS: ENOXAPARIN 40 MG/0.4 ML SYRINGE SUBCUT SCH (09:35)
[2019-10-31] MEDS: ASPIRIN EC 81 MG TABLET PO SCH (09:35)
[2019-10-31] MEDS: LOSARTAN 25 MG TABLET PO SCH (09:35)
[2019-11-01] MEDS: ALBUTEROL/IPRATROPIUM 3 ML NEB RESP TX SCH ×4 (00:07→19:28)
[2019-11-01 05:50] LABS: Basophils # 0.1 10*3/uL (0.0-0.2); Basophils % 0.8 % (0.0-0.8); Eosinophils # 0.3 10*3/uL (0.0-0.87); Eosinophils % 4.4 % (0.00-10.9); Hematocrit 35.7 VOL% (35.7-47.0); Immature Granulocytes % 0.5 %; Immature Granulocytes Absolute 0.03 #; Lymphocytes # 1.3 10*3/uL (1.4-4.0); Lymphocytes % 20.8 % (21.3-54.2); Mean Corpuscular HGB Conc 30.8 GM/DL (32-36); Mean Corpuscular Volume 88.1 FL (87-102); Mean Platelet Volume 12.2 FL (9.6-12.0); Neutrophils % 62.5 % (38.7-73.9); Platelet Count 177 T/CUMM (130-400); Red Blood Count 4.05 MC/CUMM (3.8-5.5); White Blood Count 6.2 T/CUMM (4-12)
[2019-11-01 06:04] LABS: Osmolality,Calculated 275.1 MOS/KG (273-304)
[2019-11-01] MEDS: LEVOTHYROXINE 88 MCG TABLET PO SCH (06:19)
[2019-11-01] MEDS ORDERED: LIDOCAINE 1% 20 ML VIAL ONE (07:19)
[2019-11-01] MEDS ORDERED: ceFAZolin 1,000 MG VIAL ONE (07:20)
[2019-11-01] MEDS ORDERED: DIAZEPAM 5 MG TABLET PO ONE (07:30)
[2019-11-01] MEDS ORDERED: ceFAZolin 1,000 MG in SYRINGE 1 EACH IV ONE (07:30)
[2019-11-01] MEDS ORDERED: diphenhydrAMINE CAP 25 MG CAPSULE PO ONE (07:30)
[2019-11-01] MEDS ORDERED: ceFAZolin 1,000 MG VIAL IRRIG ONE (07:30)
[2019-11-01] MEDS: carvediloL 3.125 MG TABLET PO SCH ×2 (07:47→16:17)
[2019-11-01] MEDS: FUROSEMIDE 40 MG TABLET PO SCH (08:32)
[2019-11-01] MEDS: ASPIRIN EC 81 MG TABLET PO SCH (08:32)
[2019-11-01] MEDS: LOSARTAN 25 MG TABLET PO SCH (08:32)
[2019-11-01] MEDS: POTASSIUM CHLORIDE 10 MEQ TABLET PO SCH (08:32)
[2019-11-01] MEDS: AMIODARONE 200 MG TABLET PO SCH (08:32)
[2019-11-01] MEDS: ATORVASTATIN 10 MG TABLET PO SCH (08:32)
[2019-11-01] MEDS ORDERED: fentaNYL 100 MCG/2 ML VIAL ONE (08:33)
[2019-11-01] MEDS: PANTOPRAZOLE 40 MG TABLET PO SCH (08:33)
[2019-11-01] MEDS ORDERED: MIDAZOLAM 2 MG/2 ML VIAL ONE ×2 (08:33→09:09)
[2019-11-01] MEDS: ENOXAPARIN 40 MG/0.4 ML SYRINGE SUBCUT SCH (08:33)
[2019-11-01] MEDS: ASCORBIC ACID 500 MG TABLET PO SCH ×2 (08:34→21:49)
[2019-11-01] MEDS: MAGNESIUM CHLORIDE 64 MG TABLET PO SCH (08:34)
[2019-11-01] MEDS ORDERED: TISSUE ADHESIVE 1 EACH APPLICATOR TOP ONE (10:32)
[2019-11-02] MEDS: ALBUTEROL/IPRATROPIUM 3 ML NEB RESP TX SCH ×2 (01:07→07:36)
[2019-11-02] MEDS: LEVOTHYROXINE 88 MCG TABLET PO SCH (06:24)
[2019-11-02 08:32] VITALS: BP 109/53
[2019-11-02] MEDS: POTASSIUM CHLORIDE 10 MEQ TABLET PO SCH (09:28)
[2019-11-02] MEDS: LOSARTAN 25 MG TABLET PO SCH (09:29)
[2019-11-02] MEDS: carvediloL 3.125 MG TABLET PO SCH (09:29)
[2019-11-02] MEDS: ATORVASTATIN 10 MG TABLET PO SCH (09:29)
[2019-11-02] MEDS: FUROSEMIDE 40 MG TABLET PO SCH (09:29)
[2019-11-02] MEDS: ASPIRIN EC 81 MG TABLET PO SCH (09:29)
[2019-11-02] MEDS: AMIODARONE 200 MG TABLET PO SCH (09:29)
[2019-11-02] MEDS: MAGNESIUM CHLORIDE 64 MG TABLET PO SCH (09:29)
[2019-11-02] MEDS: ASCORBIC ACID 500 MG TABLET PO SCH (09:29)
[2019-11-02] MEDS: PANTOPRAZOLE 40 MG TABLET PO SCH (09:29)
== END 2019-11-02 12:27 | disposition home or self-care (01) | DRG 242 ==
LOC: N.EDINP 04:06 → N.ED 04:06 → N.EDINP 08:57 → N.TELES 08:58
PROVIDERS: ADMIT Family Medicine; ATTEND Family Medicine

== ENCOUNTER 2020-08-25 21:28 | Observation (INO) ==
[2020-08-25] MEDS ORDERED: MEPERIDINE 25 MG/1 ML VIAL IV STA (22:01)
[2020-08-25] MEDS ORDERED: ASPIRIN 325 MG TABLET PO STA (22:01)
[2020-08-25] MEDS ORDERED: NITROGLYCERIN 2% OINT 1 INCH/GM PACK TOP STA (22:01)
[2020-08-25] MEDS ORDERED: ONDANSETRON 4 MG/2 ML VIAL IV STA (22:01)
[2020-08-25 22:16] LABS: Basophils # 0.1 10*3/uL (0.0-0.2); Basophils % 0.8 % (0.0-0.8); Eosinophils # 0.3 10*3/uL (0.0-0.87); Hematocrit 36.5 VOL% (35.7-47.0); Immature Granulocytes % 0.3 %; Immature Granulocytes Absolute 0.02 #; Lymphocytes # 2.1 10*3/uL (1.4-4.0); Lymphocytes % 28.3 % (21.3-54.2); Mean Corpuscular HGB Conc 30.1 GM/DL (32-36); Mean Corpuscular Volume 83.9 FL (87-102); Neutrophils % 56.6 % (38.7-73.9); Platelet Count 200 T/CUMM (130-400); Red Blood Count 4.35 MC/CUMM (3.8-5.5); Red Cell Distribution Width 15.8 % (9.3-17.3); White Blood Count 7.3 T/CUMM (4-12)
[2020-08-25 22:22] LABS: INR 1.2
[2020-08-25 22:38] LABS: Albumin 3.5 G/DL (3.4-5.0); Bilirubin,Total 1.1 MG/DL (0.2-1.0); Calcium 8.5 MG/DL (8.5-10.1); Potassium 3.6 MMOL/L (3.5-5.1); Total Protein 6.9 G/DL (6.4-8.2)
[2020-08-25 22:51] LABS: Elliptocytes 1+; Hypochromasia 3+; Platelet Estimate Normal
[2020-08-26] MEDS ORDERED: fentaNYL 100 MCG/2 ML VIAL IV STA (00:57)
[2020-08-26] MEDS: INSULIN REGULAR 100 UNIT/ML SUBCUT SCH ×2 (03:45→06:52)
[2020-08-26] MEDS ORDERED: SODIUM CHLORIDE 0.9% 1,000 ML IV SCH (03:45)
[2020-08-26] MEDS ORDERED: ACETAMINOPHEN 325 MG TABLET PO PRN (03:45)
[2020-08-26] MEDS ORDERED: GLUCAGON 1 MG VIAL IM PRN (03:45)
[2020-08-26] MEDS ORDERED: DEXTROSE 50% 25 GM/50 ML VIAL IV PRN (03:45)
[2020-08-26] MEDS ORDERED: MEPERIDINE 25 MG/1 ML VIAL IV PRN (03:45)
[2020-08-26] MEDS ORDERED: ONDANSETRON 4 MG/2 ML VIAL IV PRN (03:45)
[2020-08-26 04:16] LABS: Basophils # 0.1 10*3/uL (0.0-0.2); Basophils % 0.7 % (0.0-0.8); Eosinophils # 0.3 10*3/uL (0.0-0.87); Eosinophils % 3.6 % (0.00-10.9); Hematocrit 32.5 VOL% (35.7-47.0); Hemoglobin 9.8 GM/DL (12.0-16.0); Immature Granulocytes % 0.4 %; Immature Granulocytes Absolute 0.03 #; Lymphocytes # 1.5 10*3/uL (1.4-4.0); Lymphocytes % 20.3 % (21.3-54.2); Mean Corpuscular HGB Conc 30.2 GM/DL (32-36); Mean Platelet Volume 12.4 FL (9.6-12.0); Monocytes % 7.3 % (1.7-12.7); Neutrophils % 67.7 % (38.7-73.9); Platelet Count 171 T/CUMM (130-400); Red Blood Count 3.87 MC/CUMM (3.8-5.5); Red Cell Distribution Width 15.8 % (9.3-17.3); White Blood Count 7.2 T/CUMM (4-12)
[2020-08-26 04:42] LABS: Bilirubin,Total 0.7 MG/DL (0.2-1.0); Calcium 8.2 MG/DL (8.5-10.1); Osmolality,Calculated 283.1 MOS/KG (273-304); Potassium 3.2 MMOL/L (3.5-5.1); Total Protein 6.4 G/DL (6.4-8.2); VLDL CHOLESTEROL 9.4 MG/DL
[2020-08-26 04:45] LABS: Troponin I < 0.015 NG/ML (0.00-0.045)
[2020-08-26] MEDS ORDERED: PANTOPRAZOLE 40 MG VIAL IV SCH (09:00)
[2020-08-26] MEDS ORDERED: DOCUSATE SODIUM 100 MG CAPSULE PO SCH (09:00)
[2020-08-26] MEDS ORDERED: AMIODARONE 200 MG TABLET PO SCH (10:30)
[2020-08-26] MEDS ORDERED: APIXABAN 5 MG TABLET PO SCH (10:30)
[2020-08-26 13:56] VITALS: BP 143/54
[2020-08-26] MEDS ORDERED: carvediloL 3.125 MG TABLET PO SCH (17:00)
[2020-08-27] MEDS ORDERED: PANTOPRAZOLE 40 MG TABLET PO SCH (09:00)
[2020-08-27] MEDS ORDERED: POTASSIUM CHLORIDE 10 MEQ TABLET PO SCH (09:00)
[2020-08-27] MEDS ORDERED: ATORVASTATIN 10 MG TABLET PO SCH (09:00)
[2020-08-27] MEDS ORDERED: ASPIRIN EC 81 MG TABLET PO SCH (09:00)
[2020-08-27] MEDS ORDERED: FUROSEMIDE 40 MG TABLET PO SCH (09:00)
[2020-08-27] MEDS ORDERED: MAGNESIUM CHLORIDE 64 MG TABLET PO SCH (09:00)
[2020-08-27] MEDS ORDERED: LEVOTHYROXINE 75 MCG TABLET PO SCH (09:00)
== END 2020-08-26 13:02 | disposition home or self-care (01) ==
LOC: N.EDINP 21:28 → N.ED 21:28 → N.EDINP 08-26 13:01
PROVIDERS: ADMIT Family Medicine; ATTEND Family Medicine

== ENCOUNTER 2021-03-03 04:05 | Observation (INO) ==
[2021-03-03] MEDS ORDERED: ONDANSETRON 4 MG/2 ML VIAL IV STA (04:40)
[2021-03-03] MEDS ORDERED: FUROSEMIDE 100 MG/10 ML VIAL IV STA (04:40)
[2021-03-03] MEDS ORDERED: ALBUTEROL/IPRATROPIUM 3 ML NEB RESP TX STA (04:40)
[2021-03-03 05:07] LABS: INR 1.2; PT Patient Result 13.3 SECS (10.5-12.0); Partial Thromboplastin Time 24.6 SECS (23.9-33.8)
[2021-03-03 05:12] LABS: Albumin 3.2 G/DL (3.4-5.0); Bilirubin,Total 0.5 MG/DL (0.20-1.00); Calcium 8.3 MG/DL (8.5-10.1); Potassium 3.8 MMOL/L (3.5-5.1); Total Protein 6.9 G/DL (6.4-8.2)
[2021-03-03 05:15] LABS: Basophils # 0.1 10*3/uL (0.0-0.2); Basophils % 0.8 % (0.0-0.8); Eosinophils # 0.3 10*3/uL (0.0-0.87); Eosinophils % 4.5 % (0.00-10.9); Hematocrit 32.7 VOL% (35.7-47.0); Hemoglobin 9.4 GM/DL (12.0-16.0); Immature Granulocytes % 0.7 %; Immature Granulocytes Absolute 0.05 #; Lymphocytes # 1.2 10*3/uL (1.4-4.0); Lymphocytes % 16.2 % (21.3-54.2); Mean Corpuscular HGB Conc 28.7 GM/DL (32-36); Mean Platelet Volume 12.6 FL (9.6-12.0); Monocytes % 7.2 % (1.7-12.7); Neutrophils % 70.6 % (38.7-73.9); Platelet Count 235 T/CUMM (130-400); Red Blood Count 4.14 MC/CUMM (3.8-5.5); Red Cell Distribution Width 16.5 % (9.3-17.3); White Blood Count 7.5 T/CUMM (4-12)
[2021-03-03 05:31] LABS: Hypochromasia 1+; Microcytosis 1+; Ovalocytes Few; Platelet Estimate Normal
[2021-03-03] MEDS ORDERED: ACETAMINOPHEN 325 MG TABLET PO PRN (11:15)
[2021-03-03] MEDS ORDERED: ONDANSETRON 4 MG/2 ML VIAL IV PRN (11:15)
[2021-03-03] MEDS: cefTRIAXone 1,000 MG in SODIUM CHLORIDE 0.9% 100 ML IV SCH (11:30)
[2021-03-03] MEDS: PANTOPRAZOLE 40 MG TABLET PO SCH (13:24)
[2021-03-03] MEDS: DOCUSATE SODIUM 100 MG CAPSULE PO SCH ×2 (13:24→21:14)
[2021-03-03] MEDS ORDERED: ALBUTEROL/IPRATROPIUM 3 ML NEB RESP TX PRN (13:54)
[2021-03-03 15:45] LABS: Bacteria,Urine Occasional /HPF (Few); Bilirubin,Urine Negative (Negative); Blood, Urine Negative (Negative); Glucose,Urine (UA) Negative (Negative); Ketones,Urine Negative (Negative); Mucus,Urine Occasional /LPF (Occasional); Nitrite,Urine Negative (Negative); Protein,Urine Negative; RBC,Urine <1 /HPF (0-4); Urine Appearance CLEAR (Clear); Urine Color Colorless (Yellow); Urine Specific Gravity 1.005 (1.001-1.035); Urine Urobilinogen < 2.0 EU/DL (0.2-1.0)
[2021-03-03] MEDS: APIXABAN 5 MG TABLET PO SCH ×2 (16:28→21:14)
[2021-03-03] MEDS: AMIODARONE 200 MG TABLET PO SCH (16:28)
[2021-03-03] MEDS: carvediloL 3.125 MG TABLET PO SCH (18:15)
[2021-03-03] MEDS: ASCORBIC ACID 500 MG TABLET PO SCH (21:14)
[2021-03-04 06:06] LABS: Basophils # 0.1 10*3/uL (0.0-0.2); Basophils % 0.9 % (0.0-0.8); Eosinophils # 0.3 10*3/uL (0.0-0.87); Eosinophils % 5.6 % (0.00-10.9); Hematocrit 28.7 VOL% (35.7-47.0); Hemoglobin 8.5 GM/DL (12.0-16.0); Immature Granulocytes % 0.4 %; Immature Granulocytes Absolute 0.02 #; Lymphocytes % 18.5 % (21.3-54.2); Mean Corpuscular HGB Conc 29.6 GM/DL (32-36); Mean Corpuscular Volume 80.2 FL (87-102); Mean Platelet Volume 11.8 FL (9.6-12.0); Monocytes % 9.7 % (1.7-12.7); Neutrophils % 64.9 % (38.7-73.9); Platelet Count 176 T/CUMM (130-400); Red Blood Count 3.58 MC/CUMM (3.8-5.5); Red Cell Distribution Width 16.1 % (9.3-17.3); White Blood Count 5.4 T/CUMM (4-12)
[2021-03-04] MEDS ORDERED: LEVOTHYROXINE 75 MCG TABLET PO SCH (06:30)
[2021-03-04 07:08] LABS: Thyroid Stimulating Hormone 4.81 uIU/ml (0.358-3.74)
[2021-03-04 07:09] LABS: Albumin 2.8 G/DL (3.4-5.0); Bilirubin,Total 1.1 MG/DL (0.20-1.00); Osmolality,Calculated 284.1 MOS/KG (273-304); Potassium 2.8 MMOL/L (3.5-5.1); Total Protein 6.2 G/DL (6.4-8.2)
[2021-03-04] MEDS: carvediloL 3.125 MG TABLET PO SCH (08:27)
[2021-03-04] MEDS: DOCUSATE SODIUM 100 MG CAPSULE PO SCH (08:27)
[2021-03-04] MEDS: APIXABAN 5 MG TABLET PO SCH (08:27)
[2021-03-04] MEDS: ASCORBIC ACID 500 MG TABLET PO SCH (08:27)
[2021-03-04] MEDS: AMIODARONE 200 MG TABLET PO SCH (08:27)
[2021-03-04] MEDS: PANTOPRAZOLE 40 MG TABLET PO SCH (08:28)
[2021-03-04] MEDS: cefTRIAXone 1,000 MG in SODIUM CHLORIDE 0.9% 100 ML IV SCH (08:28)
[2021-03-04] MEDS ORDERED: MAGNESIUM CHLORIDE 64 MG TABLET PO SCH (09:00)
[2021-03-04] MEDS ORDERED: ASPIRIN EC 81 MG TABLET PO SCH (09:00)
[2021-03-04] MEDS ORDERED: POTASSIUM CHLORIDE 10 MEQ TABLET PO SCH (09:00)
[2021-03-04] MEDS ORDERED: CYANOCOBALAMIN 500 MCG TABLET PO SCH (09:00)
[2021-03-04] MEDS ORDERED: PANTOPRAZOLE 40 MG TABLET PO SCH (09:00)
[2021-03-04] MEDS ORDERED: FUROSEMIDE 40 MG TABLET PO SCH (09:00)
[2021-03-04] MEDS ORDERED: ATORVASTATIN 10 MG TABLET PO SCH (09:00)
[2021-03-04] MEDS ORDERED: BUDESONIDE/FORMOTEROL 160-4.5 INHALER 6 GM INH SCH (09:11)
[2021-03-04 12:05] VITALS: BP 111/63
== END 2021-03-04 12:11 | disposition home or self-care (01) ==
LOC: N.ED 04:05 → N.EDINP 04:05 → N.5E 17:03
PROVIDERS: ADMIT Family Medicine; ATTEND Family Medicine

== ENCOUNTER 2021-03-22 08:30 | Inpatient (IN) ==
[2021-03-22 11:39] LABS: Bacteria,Urine Occasional /HPF (Few); Bilirubin,Urine Negative (Negative); Blood, Urine Negative (Negative); Glucose,Urine (UA) Negative (Negative); Hyaline Casts,Urine 4 /LPF (0-3); Ketones,Urine Negative (Negative); Mucus,Urine Occasional /LPF (Occasional); Nitrite,Urine Negative (Negative); Protein,Urine 30 MG/DL; RBC,Urine 8 /HPF (0-4); Squamous Epithelial Cell,Urine Occasional /HPF (0-10); Urine Appearance CLEAR (Clear); Urine Color Yellow (Yellow); Urine Specific Gravity 1.018 (1.001-1.035)
[2021-03-22] MEDS ORDERED: traMADol 50 MG TABLET PO STA (12:49)
[2021-03-22] MEDS ORDERED: DEXAMETHASONE 4 MG/1 ML VIAL IM STA (13:17)
[2021-03-22] MEDS ORDERED: methylPREDNISolone ACETATE 40 MG/1 ML VIAL IM STA (13:17)
[2021-03-22] MEDS ORDERED: CYCLOBENZAPRINE 10 MG TABLET PO STA (14:05)
[2021-03-22] MEDS ORDERED: ONDANSETRON 4 MG/2 ML VIAL IV PRN (15:54)
[2021-03-22] MEDS ORDERED: NALOXONE 0.4 MG/ML VIAL IV PRN (15:58)
[2021-03-22] MEDS: MORPHINE 2 MG/1 ML SYRINGE IV PRN (18:13)
[2021-03-22] MEDS: DOCUSATE SODIUM 100 MG CAPSULE PO SCH (22:43)
[2021-03-23] MEDS: PANTOPRAZOLE 40 MG TABLET PO SCH (09:27)
[2021-03-23] MEDS: DOCUSATE SODIUM 100 MG CAPSULE PO SCH ×2 (09:28→20:50)
[2021-03-23] MEDS: CYCLOBENZAPRINE 10 MG TABLET PO PRN (09:29)
[2021-03-23 12:43] LABS: Basophils % 0.2 % (0.0-0.8); Immature Granulocytes % 1.4 %; Immature Granulocytes Absolute 0.19 #; Lymphocytes # 0.9 10*3/uL (1.4-4.0); Lymphocytes % 6.2 % (21.3-54.2); Mean Corpuscular HGB Conc 28.6 GM/DL (32-36); Mean Platelet Volume 11.8 FL (9.6-12.0); Monocytes % 8.1 % (1.7-12.7); Neutrophils % 84.1 % (38.7-73.9); Platelet Count 230 T/CUMM (130-400); Red Blood Count 3.86 MC/CUMM (3.8-5.5); Red Cell Distribution Width 16.8 % (9.3-17.3); White Blood Count 13.9 T/CUMM (4-12)
[2021-03-23 12:45] LABS: Hematocrit 30.1 VOL% (35.7-47.0); Hemoglobin 8.6 GM/DL (12.0-16.0)
[2021-03-23 13:05] LABS: Albumin 2.6 G/DL (3.4-5.0); Bilirubin,Total 0.7 MG/DL (0.20-1.00); Calcium 8.7 MG/DL (8.5-10.1); Osmolality,Calculated 275.7 MOS/KG (273-304); Potassium 3.2 MMOL/L (3.5-5.1); Total Protein 6.7 G/DL (6.4-8.2)
[2021-03-23] MEDS ORDERED: PANTOPRAZOLE 40 MG TABLET PO SCH (14:00)
[2021-03-23] MEDS: CYANOCOBALAMIN 500 MCG TABLET PO SCH (14:35)
[2021-03-23] MEDS: BUDESONIDE/FORMOTEROL 160-4.5 INHALER 6 GM INH SCH ×2 (14:35→20:50)
[2021-03-23] MEDS: AMIODARONE 200 MG TABLET PO SCH (14:35)
[2021-03-23] MEDS: FUROSEMIDE 40 MG TABLET PO SCH (14:35)
[2021-03-23 14:43] LABS: Hypochromasia 2+
[2021-03-23 14:44] LABS: Anisocytosis 2+; Elliptocytes Few
[2021-03-23 14:45] LABS: Acanthocytes Few; Platelet Estimate Normal
[2021-03-23] MEDS ORDERED: POTASSIUM CHLORIDE 20 MEQ TABLET PO ONE (15:00)
[2021-03-23] MEDS: carvediloL 3.125 MG TABLET PO SCH (16:39)
[2021-03-23] MEDS: MORPHINE 2 MG/1 ML SYRINGE IV PRN (18:02)
[2021-03-23] MEDS: ATORVASTATIN 10 MG TABLET PO SCH (20:49)
[2021-03-23] MEDS: GABAPENTIN 300 MG CAPSULE PO SCH (20:49)
[2021-03-24] MEDS: ACETAMINOPHEN 325 MG TABLET PO PRN (00:03)
[2021-03-24] MEDS: MORPHINE 2 MG/1 ML SYRINGE IV PRN (00:03)
[2021-03-24 02:04] LABS: ABG Base Excess 1.1 MMOL/L (-2.5-2.5); ABG HCO3 25.4 MMOL/L (20-26); ABG PCO2 34.9 MM HG (35-48); ABG PH 7.459 (7.35-7.45)
[2021-03-24] MEDS: LEVOTHYROXINE 75 MCG TABLET PO SCH (05:43)
[2021-03-24] MEDS: POTASSIUM CHLORIDE 10 MEQ TABLET PO SCH (09:11)
[2021-03-24] MEDS: MAGNESIUM CHLORIDE 64 MG TABLET PO SCH (09:11)
[2021-03-24] MEDS: PANTOPRAZOLE 40 MG TABLET PO SCH (09:11)
[2021-03-24] MEDS: GABAPENTIN 300 MG CAPSULE PO SCH ×2 (09:12→20:37)
[2021-03-24] MEDS: AMIODARONE 200 MG TABLET PO SCH (09:12)
[2021-03-24] MEDS: CYANOCOBALAMIN 500 MCG TABLET PO SCH (09:12)
[2021-03-24] MEDS: carvediloL 3.125 MG TABLET PO SCH ×2 (09:12→18:04)
[2021-03-24] MEDS: DOCUSATE SODIUM 100 MG CAPSULE PO SCH ×2 (09:12→22:11)
[2021-03-24] MEDS: FUROSEMIDE 40 MG TABLET PO SCH (09:12)
[2021-03-24] MEDS: BUDESONIDE/FORMOTEROL 160-4.5 INHALER 6 GM INH SCH ×2 (09:12→20:38)
[2021-03-24] MEDS: ALBUTEROL/IPRATROPIUM 3 ML NEB RESP TX SCH ×2 (14:00→20:25)
[2021-03-24] MEDS: ATORVASTATIN 10 MG TABLET PO SCH (20:37)
[2021-03-25] MEDS: ALBUTEROL/IPRATROPIUM 3 ML NEB RESP TX SCH ×4 (00:35→11:34)
[2021-03-25 05:02] LABS: Basophils % 0.4 % (0.0-0.8); Eosinophils # 0.2 10*3/uL (0.0-0.87); Eosinophils % 2.3 % (0.00-10.9); Hematocrit 26.7 VOL% (35.7-47.0); Hemoglobin 7.6 GM/DL (12.0-16.0); Immature Granulocytes % 1.3 %; Immature Granulocytes Absolute 0.13 #; Lymphocytes # 1.2 10*3/uL (1.4-4.0); Mean Corpuscular HGB Conc 28.5 GM/DL (32-36); Mean Corpuscular Volume 78.5 FL (87-102); Mean Platelet Volume 11.4 FL (9.6-12.0); Monocytes % 9.2 % (1.7-12.7); Neutrophils % 74.8 % (38.7-73.9); Platelet Count 215 T/CUMM (130-400); Red Cell Distribution Width 16.7 % (9.3-17.3); White Blood Count 10.3 T/CUMM (4-12)
[2021-03-25] MEDS: LEVOTHYROXINE 75 MCG TABLET PO SCH (05:31)
[2021-03-25 05:32] LABS: Calcium 8.2 MG/DL (8.5-10.1); Osmolality,Calculated 281.4 MOS/KG (273-304); Potassium 3.4 MMOL/L (3.5-5.1)
[2021-03-25] MEDS: FUROSEMIDE 40 MG TABLET PO SCH (09:26)
[2021-03-25] MEDS: PANTOPRAZOLE 40 MG TABLET PO SCH (09:26)
[2021-03-25] MEDS: MAGNESIUM CHLORIDE 64 MG TABLET PO SCH (09:26)
[2021-03-25] MEDS: POTASSIUM CHLORIDE 10 MEQ TABLET PO SCH (09:27)
[2021-03-25] MEDS: AMIODARONE 200 MG TABLET PO SCH (09:28)
[2021-03-25] MEDS: DOCUSATE SODIUM 100 MG CAPSULE PO SCH ×2 (09:28→21:26)
[2021-03-25] MEDS: GABAPENTIN 300 MG CAPSULE PO SCH ×2 (09:29→21:27)
[2021-03-25] MEDS: carvediloL 3.125 MG TABLET PO SCH ×2 (09:29→17:21)
[2021-03-25] MEDS: CYANOCOBALAMIN 500 MCG TABLET PO SCH (09:29)
[2021-03-25] MEDS: BUDESONIDE/FORMOTEROL 160-4.5 INHALER 6 GM INH SCH ×2 (09:30→21:26)
[2021-03-25] MEDS: ALBUTEROL/IPRATROPIUM 3 ML NEB RESP TX PRN (15:30)
[2021-03-25] MEDS: ATORVASTATIN 10 MG TABLET PO SCH (21:26)
[2021-03-25] MEDS: CYCLOBENZAPRINE 10 MG TABLET PO PRN (21:27)
[2021-03-26] MEDS: ACETAMINOPHEN 325 MG TABLET PO PRN (00:13)
[2021-03-26 05:22] LABS: Basophils # 0.1 10*3/uL (0.0-0.2); Basophils % 0.4 % (0.0-0.8); Eosinophils # 0.3 10*3/uL (0.0-0.87); Eosinophils % 2.1 % (0.00-10.9); Hematocrit 26.6 VOL% (35.7-47.0); Hemoglobin 7.6 GM/DL (12.0-16.0); Immature Granulocytes % 1.1 %; Immature Granulocytes Absolute 0.13 #; Lymphocytes # 1.3 10*3/uL (1.4-4.0); Lymphocytes % 10.7 % (21.3-54.2); Mean Corpuscular HGB Conc 28.6 GM/DL (32-36); Mean Corpuscular Volume 77.6 FL (87-102); Monocytes % 9.1 % (1.7-12.7); Neutrophils % 76.6 % (38.7-73.9); Platelet Count 227 T/CUMM (130-400); Red Blood Count 3.43 MC/CUMM (3.8-5.5); Red Cell Distribution Width 16.7 % (9.3-17.3); White Blood Count 12.1 T/CUMM (4-12)
[2021-03-26 05:27] LABS: INR 1.2; PT Patient Result 13.6 SECS (10.5-12.0)
[2021-03-26 05:42] LABS: Albumin 2.2 G/DL (3.4-5.0); Bilirubin,Total 0.8 MG/DL (0.20-1.00); Calcium 8.3 MG/DL (8.5-10.1); Osmolality,Calculated 275.8 MOS/KG (273-304); Potassium 3.2 MMOL/L (3.5-5.1); Total Protein 6.2 G/DL (6.4-8.2)
[2021-03-26] MEDS: LEVOTHYROXINE 75 MCG TABLET PO SCH (06:49)
[2021-03-26] MEDS ORDERED: POTASSIUM CHLORIDE 20 MEQ TABLET PO ONE (09:00)
[2021-03-26] MEDS: BUDESONIDE/FORMOTEROL 160-4.5 INHALER 6 GM INH SCH ×2 (09:10→20:21)
[2021-03-26] MEDS: carvediloL 3.125 MG TABLET PO SCH ×2 (09:36→17:26)
[2021-03-26] MEDS: DOCUSATE SODIUM 100 MG CAPSULE PO SCH ×2 (09:36→20:21)
[2021-03-26] MEDS: GABAPENTIN 300 MG CAPSULE PO SCH ×2 (09:37→20:21)
[2021-03-26] MEDS: PANTOPRAZOLE 40 MG TABLET PO SCH (09:37)
[2021-03-26] MEDS: MAGNESIUM CHLORIDE 64 MG TABLET PO SCH (10:32)
[2021-03-26] MEDS: FUROSEMIDE 40 MG TABLET PO SCH (10:32)
[2021-03-26] MEDS: AMIODARONE 200 MG TABLET PO SCH (10:32)
[2021-03-26] MEDS: CYANOCOBALAMIN 500 MCG TABLET PO SCH (10:33)
[2021-03-26] MEDS: POTASSIUM CHLORIDE INJ 20 MEQ in LACTATED RINGERS 1,000 ML IV SCH (11:38)
[2021-03-26] MEDS: MORPHINE 2 MG/1 ML SYRINGE IV PRN (12:53)
[2021-03-26 13:45] LABS: Hematocrit 28.3 VOL% (35.7-47.0); Hemoglobin 8.1 GM/DL (12.0-16.0)
[2021-03-26] MEDS ORDERED: TRIAMCINOLONE ACETONIDE 40 MG/1 ML VIAL ONE (13:55)
[2021-03-26] MEDS ORDERED: DEXAMETHASONE 10 MG/1 ML VIAL ONE ×2 (13:55→13:56)
[2021-03-26] MEDS ORDERED: BUPIVACAINE 0.5% 50 ML VIAL ONE (13:55)
[2021-03-26] MEDS ORDERED: MIDAZOLAM 2 MG/2 ML VIAL ONE (15:19)
[2021-03-26] MEDS ORDERED: propofoL 200 MG/20 ML VIAL IV ONE (15:32)
[2021-03-26] MEDS ORDERED: LIDOCAINE 2% 5 ML VIAL ONE (15:32)
[2021-03-26] MEDS ORDERED: ETOMIDATE 40 MG/20 ML VIAL IV ONE (15:32)
[2021-03-26] MEDS: ALBUTEROL/IPRATROPIUM 3 ML NEB RESP TX PRN (16:00)
[2021-03-26 17:43] LABS: Hematocrit 29.4 VOL% (35.7-47.0); Hemoglobin 8.5 GM/DL (12.0-16.0)
[2021-03-26] MEDS: ATORVASTATIN 10 MG TABLET PO SCH (20:21)
[2021-03-26 21:31] LABS: Bacteria,Urine Many /HPF (Few); Bilirubin,Urine Negative (Negative); Blood, Urine Small mg/dL (Negative); Glucose,Urine (UA) Negative (Negative); Ketones,Urine Negative (Negative); Nitrite,Urine Negative (Negative); Protein,Urine 30 MG/DL; Squamous Epithelial Cell,Urine Occasional /HPF (0-10); Urine Appearance CLOUDY (Clear); Urine Color Yellow (Yellow); Urine Specific Gravity 1.013 (1.001-1.035)
[2021-03-26] MEDS: CYCLOBENZAPRINE 10 MG TABLET PO PRN (22:45)
[2021-03-27] MEDS: LEVOTHYROXINE 75 MCG TABLET PO SCH (06:37)
[2021-03-27] MEDS: POTASSIUM CHLORIDE INJ 20 MEQ in LACTATED RINGERS 1,000 ML IV SCH ×2 (07:40)
[2021-03-27] MEDS: DOCUSATE SODIUM 100 MG CAPSULE PO SCH ×2 (08:19→20:02)
[2021-03-27] MEDS: carvediloL 3.125 MG TABLET PO SCH ×2 (08:19→16:03)
[2021-03-27] MEDS: MAGNESIUM CHLORIDE 64 MG TABLET PO SCH (08:19)
[2021-03-27] MEDS: POTASSIUM CHLORIDE 20 MEQ TABLET PO SCH (08:20)
[2021-03-27] MEDS: GABAPENTIN 300 MG CAPSULE PO SCH ×2 (08:20→20:02)
[2021-03-27] MEDS: FUROSEMIDE 40 MG TABLET PO SCH (08:20)
[2021-03-27] MEDS: CYANOCOBALAMIN 500 MCG TABLET PO SCH (08:20)
[2021-03-27] MEDS: CYCLOBENZAPRINE 10 MG TABLET PO PRN (08:20)
[2021-03-27] MEDS: PANTOPRAZOLE 40 MG TABLET PO SCH (08:20)
[2021-03-27] MEDS: AMIODARONE 200 MG TABLET PO SCH (08:20)
[2021-03-27] MEDS: BUDESONIDE/FORMOTEROL 160-4.5 INHALER 6 GM INH SCH ×2 (08:22→22:10)
[2021-03-27 08:43] LABS: Basophils % 0.2 % (0.0-0.8); Hematocrit 28.7 VOL% (35.7-47.0); Hemoglobin 8.3 GM/DL (12.0-16.0); Immature Granulocytes % 1.4 %; Immature Granulocytes Absolute 0.18 #; Lymphocytes # 0.6 10*3/uL (1.4-4.0); Lymphocytes % 4.7 % (21.3-54.2); Mean Corpuscular HGB Conc 28.9 GM/DL (32-36); Mean Platelet Volume 11.3 FL (9.6-12.0); Monocytes % 4.4 % (1.7-12.7); Neutrophils % 89.3 % (38.7-73.9); Platelet Count 279 T/CUMM (130-400); Red Blood Count 3.68 MC/CUMM (3.8-5.5); Red Cell Distribution Width 16.6 % (9.3-17.3); White Blood Count 12.6 T/CUMM (4-12)
[2021-03-27 08:59] LABS: Albumin 2.2 G/DL (3.4-5.0); Bilirubin,Total 1.1 MG/DL (0.20-1.00); Osmolality,Calculated 280.5 MOS/KG (273-304); Potassium 3.7 MMOL/L (3.5-5.1); Total Protein 6.6 G/DL (6.4-8.2)
[2021-03-27 09:21] LABS: Lymphocytes 9 % (20-55); Segmented Neutrophils 87 % (50-85); Total Cells Counted 100
[2021-03-27 09:22] LABS: Hypochromasia 1+; Microcytosis 1+; Ovalocytes Few; Platelet Estimate Normal
[2021-03-27] MEDS: ATORVASTATIN 10 MG TABLET PO SCH (20:02)
[2021-03-28] MEDS: LEVOTHYROXINE 75 MCG TABLET PO SCH (05:59)
[2021-03-28] MEDS: MAGNESIUM CHLORIDE 64 MG TABLET PO SCH (08:22)
[2021-03-28] MEDS: CYCLOBENZAPRINE 10 MG TABLET PO PRN (08:22)
[2021-03-28] MEDS: GABAPENTIN 300 MG CAPSULE PO SCH (08:22)
[2021-03-28] MEDS: CYANOCOBALAMIN 500 MCG TABLET PO SCH (08:22)
[2021-03-28] MEDS: PANTOPRAZOLE 40 MG TABLET PO SCH (08:23)
[2021-03-28] MEDS: AMIODARONE 200 MG TABLET PO SCH (08:23)
[2021-03-28] MEDS: carvediloL 3.125 MG TABLET PO SCH ×2 (08:23→17:06)
[2021-03-28] MEDS: BUDESONIDE/FORMOTEROL 160-4.5 INHALER 6 GM INH SCH (08:23)
[2021-03-28] MEDS: POTASSIUM CHLORIDE 20 MEQ TABLET PO SCH (08:23)
[2021-03-28] MEDS: FUROSEMIDE 40 MG TABLET PO SCH (08:23)
[2021-03-28] MEDS: DOCUSATE SODIUM 100 MG CAPSULE PO SCH (08:23)
[2021-03-28 15:53] VITALS: BP 126/95
== END 2021-03-28 18:27 | disposition home health service (06) | DRG 552 ==
LOC: N.EDINP 08:30 → N.ED 08:30 → N.5E 20:12
PROVIDERS: ADMIT Family Medicine; ATTEND Family Medicine

== ENCOUNTER 2021-06-25 07:24 | Inpatient (IN) ==
[2021-06-25] MEDS ORDERED: FUROSEMIDE 40 MG/4 ML VIAL IV STA (08:16)
[2021-06-25 08:25] LABS: INR 1.4; PT Patient Result 15.4 SECS (10.5-12.0); Partial Thromboplastin Time 27.9 SECS (23.8-32.1)
[2021-06-25 08:40] LABS: Basophils # 0.1 10*3/uL (0.0-0.2); Basophils % 0.6 % (0.0-0.8); Eosinophils # 0.1 10*3/uL (0.0-0.87); Eosinophils % 0.7 % (0.00-10.9); Hematocrit 30.8 VOL% (35.7-47.0); Immature Granulocytes % 0.6 %; Immature Granulocytes Absolute 0.05 #; Lymphocytes # 0.9 10*3/uL (1.4-4.0); Lymphocytes % 10.3 % (21.3-54.2); Mean Corpuscular HGB Conc 27.3 GM/DL (32-36); Mean Corpuscular Volume 74.8 FL (87-102); Mean Platelet Volume 11.3 FL (9.6-12.0); Monocytes % 8.6 % (1.7-12.7); Neutrophils % 79.2 % (38.7-73.9); Platelet Count 277 T/CUMM (130-400); Red Blood Count 4.12 MC/CUMM (3.8-5.5); Red Cell Distribution Width 18.6 % (9.3-17.3); White Blood Count 8.3 T/CUMM (4-12)
[2021-06-25 08:42] LABS: Hemoglobin 8.4 GM/DL (12.0-16.0)
[2021-06-25 08:44] LABS: Albumin 2.8 G/DL (3.4-5.0); Bilirubin,Total 0.9 MG/DL (0.20-1.00); Calcium 8.6 MG/DL (8.5-10.1); Osmolality,Calculated 275.7 MOS/KG (273-304); Potassium 2.6 MMOL/L (3.5-5.1); Total Protein 7.1 G/DL (6.4-8.2)
[2021-06-25] MEDS ORDERED: MAGNESIUM SULF RIDER 2 GM/50 ML PREMIX IV STA (08:55)
[2021-06-25] MEDS ORDERED: POTASSIUM CHLORIDE 20 MEQ TABLET PO STA (09:07)
[2021-06-25] MEDS ORDERED: ONDANSETRON 4 MG/2 ML VIAL IV PRN (09:36)
[2021-06-25] MEDS ORDERED: ACETAMINOPHEN 325 MG TABLET PO PRN (09:36)
[2021-06-25] MEDS: POTASSIUM CHLORIDE RIDER 10 MEQ/100 ML PREMIX IV PRN ×5 (09:40→20:00)
[2021-06-25] MEDS ORDERED: metOLazone 2.5 MG TABLET PO SCH (11:30)
[2021-06-25] MEDS ORDERED: GLUCAGON 1 MG VIAL IM PRN (13:20)
[2021-06-25] MEDS ORDERED: MAGNESIUM SULF RIDER 4 GM/100 ML PREMIX IV PRN (13:20)
[2021-06-25] MEDS ORDERED: DEXTROSE 50% 25 GM/50 ML SYRINGE IV PRN (13:20)
[2021-06-25] MEDS ORDERED: MAGNESIUM SULF RIDER 2 GM/50 ML PREMIX IV PRN (13:20)
[2021-06-25] MEDS ORDERED: methylPREDNISolone SOD SUC 40 MG/1 ML VIAL IV SCH (13:30)
[2021-06-25] MEDS: cefTRIAXone 1,000 MG in SODIUM CHLORIDE 0.9% 100 ML IV SCH (14:28)
[2021-06-25] MEDS: methylPREDNISolone SOD SUC 40 MG/1 ML VIAL IV SCH (15:07)
[2021-06-25] MEDS: ALBUTEROL/IPRATROPIUM 3 ML NEB RESP TX SCH ×2 (15:46→20:52)
[2021-06-25] MEDS: INSULIN REGULAR 100 UNIT/ML SUBCUT SCH ×2 (16:37→23:15)
[2021-06-25] MEDS: carvediloL 3.125 MG TABLET PO SCH (17:44)
[2021-06-25] MEDS ORDERED: AMIODARONE 200 MG TABLET PO SCH (21:00)
[2021-06-25] MEDS: ATORVASTATIN 10 MG TABLET PO SCH (22:51)
[2021-06-25] MEDS: ASCORBIC ACID 500 MG TABLET PO SCH (22:51)
[2021-06-25] MEDS: DOCUSATE SODIUM 100 MG CAPSULE PO SCH (22:51)
[2021-06-25] MEDS: GABAPENTIN 300 MG CAPSULE PO SCH (22:51)
[2021-06-25] MEDS: APIXABAN 5 MG TABLET PO SCH (22:53)
[2021-06-26] MEDS: BUDESONIDE/FORMOTEROL 160-4.5 INHALER 6 GM INH SCH ×3 (00:30→21:29)
[2021-06-26] MEDS: ALBUTEROL/IPRATROPIUM 3 ML NEB RESP TX SCH ×6 (00:50→19:13)
[2021-06-26] MEDS: methylPREDNISolone SOD SUC 40 MG/1 ML VIAL IV SCH ×2 (03:03→14:03)
[2021-06-26] MEDS: LEVOTHYROXINE 100 MCG TABLET PO SCH (06:21)
[2021-06-26] MEDS ORDERED: LEVOTHYROXINE 75 MCG TABLET PO SCH (06:30)
[2021-06-26 06:35] LABS: Calcium 8.6 MG/DL (8.5-10.1); Osmolality,Calculated 269.1 MOS/KG (273-304)
[2021-06-26 06:37] LABS: Potassium 2.5 MMOL/L (3.5-5.1)
[2021-06-26] MEDS: POTASSIUM BICARB EFFERVESCENT 20 MEQ TAB.EFF PER TUBE PRN ×4 (06:46→14:00)
[2021-06-26 07:26] LABS: Basophils % 0.4 % (0.0-0.8); Eosinophils # 0.2 10*3/uL (0.0-0.87); Eosinophils % 2.5 % (0.00-10.9); Hematocrit 27.4 VOL% (35.7-47.0); Hemoglobin 7.5 GM/DL (12.0-16.0); Immature Granulocytes % 0.6 %; Immature Granulocytes Absolute 0.05 #; Lymphocytes % 11.4 % (21.3-54.2); Mean Corpuscular HGB Conc 27.4 GM/DL (32-36); Mean Corpuscular Volume 75.3 FL (87-102); Monocytes % 7.9 % (1.7-12.7); Neutrophils % 77.2 % (38.7-73.9); Platelet Count 233 T/CUMM (130-400); Red Blood Count 3.64 MC/CUMM (3.8-5.5); Red Cell Distribution Width 18.4 % (9.3-17.3); White Blood Count 8.9 T/CUMM (4-12)
[2021-06-26] MEDS: INSULIN REGULAR 100 UNIT/ML SUBCUT SCH ×3 (07:59→16:32)
[2021-06-26] MEDS: carvediloL 3.125 MG TABLET PO SCH (08:47)
[2021-06-26] MEDS: SPIRONOLACTONE 25 MG TABLET PO SCH (08:54)
[2021-06-26] MEDS: DOCUSATE SODIUM 100 MG CAPSULE PO SCH ×2 (08:54→21:28)
[2021-06-26] MEDS: MAGNESIUM CHLORIDE 64 MG TABLET PO SCH (08:54)
[2021-06-26] MEDS: POTASSIUM CHLORIDE 10 MEQ TABLET PO SCH (08:54)
[2021-06-26] MEDS: SOTALOL 80 MG TABLET PO SCH ×2 (08:54→21:28)
[2021-06-26] MEDS: ASCORBIC ACID 500 MG TABLET PO SCH ×2 (08:54→21:28)
[2021-06-26] MEDS: GABAPENTIN 300 MG CAPSULE PO SCH ×2 (08:55→21:28)
[2021-06-26] MEDS: APIXABAN 5 MG TABLET PO SCH ×2 (08:55→21:28)
[2021-06-26] MEDS: FUROSEMIDE 40 MG TABLET PO SCH (08:55)
[2021-06-26] MEDS: ASPIRIN EC 81 MG TABLET PO SCH (08:55)
[2021-06-26] MEDS: PANTOPRAZOLE 40 MG TABLET PO SCH (08:56)
[2021-06-26] MEDS: ASCORBIC ACID VITAMIN E BIOTIN PO SCH (08:57)
[2021-06-26] MEDS: BIOTIN PO SCH (08:57)
[2021-06-26] MEDS: SKIN PO SCH (08:57)
[2021-06-26] MEDS ORDERED: PANTOPRAZOLE 40 MG TABLET PO SCH (09:00)
[2021-06-26] MEDS ORDERED: AMIODARONE 200 MG TABLET PO SCH (09:00)
[2021-06-26] MEDS: CYANOCOBALAMIN 5000 MCG PO SCH (11:05)
[2021-06-26] MEDS: cefTRIAXone 1,000 MG in SODIUM CHLORIDE 0.9% 100 ML IV SCH (14:03)
[2021-06-26 19:23] LABS: Hematocrit 27.6 VOL% (35.7-47.0); Hemoglobin 7.6 GM/DL (12.0-16.0)
[2021-06-26] MEDS: ATORVASTATIN 10 MG TABLET PO SCH (21:28)
[2021-06-27] MEDS: ALBUTEROL/IPRATROPIUM 3 ML NEB RESP TX SCH ×6 (00:31→19:20)
[2021-06-27] MEDS: methylPREDNISolone SOD SUC 40 MG/1 ML VIAL IV SCH (03:13)
[2021-06-27 05:28] LABS: Albumin 2.4 G/DL (3.4-5.0); Bilirubin,Total 0.6 MG/DL (0.20-1.00); Calcium 8.6 MG/DL (8.5-10.1); Osmolality,Calculated 272.1 MOS/KG (273-304); Potassium 3.6 MMOL/L (3.5-5.1); Total Protein 6.7 G/DL (6.4-8.2)
[2021-06-27 05:33] LABS: Basophils % 0.1 % (0.0-0.8); Hematocrit 26.4 VOL% (35.7-47.0); Immature Granulocytes % 0.7 %; Immature Granulocytes Absolute 0.06 #; Lymphocytes # 0.8 10*3/uL (1.4-4.0); Lymphocytes % 10.1 % (21.3-54.2); Mean Corpuscular HGB Conc 27.7 GM/DL (32-36); Mean Corpuscular Volume 74.4 FL (87-102); Mean Platelet Volume 11.3 FL (9.6-12.0); Monocytes % 5.7 % (1.7-12.7); Neutrophils % 83.4 % (38.7-73.9); Platelet Count 242 T/CUMM (130-400); Red Blood Count 3.55 MC/CUMM (3.8-5.5); Red Cell Distribution Width 18.3 % (9.3-17.3); White Blood Count 8.3 T/CUMM (4-12)
[2021-06-27 05:35] LABS: Hemoglobin 7.3 GM/DL (12.0-16.0)
[2021-06-27 05:49] LABS: Hypochromia 2+; Microcytosis 1+; Ovalocytes Few
[2021-06-27 05:50] LABS: Platelet Estimate Normal
[2021-06-27] MEDS: LEVOTHYROXINE 100 MCG TABLET PO SCH (07:04)
[2021-06-27] MEDS: INSULIN REGULAR 100 UNIT/ML SUBCUT SCH ×5 (07:23→21:19)
[2021-06-27] MEDS: POTASSIUM BICARB EFFERVESCENT 20 MEQ TAB.EFF PER TUBE PRN ×2 (08:04→12:22)
[2021-06-27] MEDS: SKIN PO SCH (08:07)
[2021-06-27] MEDS: ASCORBIC ACID VITAMIN E BIOTIN PO SCH (08:07)
[2021-06-27] MEDS: CYANOCOBALAMIN 5000 MCG PO SCH (08:07)
[2021-06-27] MEDS: BIOTIN PO SCH (08:07)
[2021-06-27] MEDS: DOCUSATE SODIUM 100 MG CAPSULE PO SCH ×2 (09:08→21:17)
[2021-06-27] MEDS: predniSONE 20 MG TABLET PO SCH (09:08)
[2021-06-27] MEDS: MAGNESIUM CHLORIDE 64 MG TABLET PO SCH (09:08)
[2021-06-27] MEDS: SOTALOL 80 MG TABLET PO SCH ×2 (09:08→21:17)
[2021-06-27] MEDS: ASPIRIN EC 81 MG TABLET PO SCH (09:08)
[2021-06-27] MEDS: FUROSEMIDE 40 MG TABLET PO SCH (09:08)
[2021-06-27] MEDS: GABAPENTIN 300 MG CAPSULE PO SCH ×2 (09:08→21:18)
[2021-06-27] MEDS: SPIRONOLACTONE 25 MG TABLET PO SCH (09:08)
[2021-06-27] MEDS: POTASSIUM CHLORIDE 10 MEQ TABLET PO SCH (09:08)
[2021-06-27] MEDS: ASCORBIC ACID 500 MG TABLET PO SCH ×2 (09:09→21:18)
[2021-06-27] MEDS: PANTOPRAZOLE 40 MG TABLET PO SCH (09:09)
[2021-06-27] MEDS: BUDESONIDE/FORMOTEROL 160-4.5 INHALER 6 GM INH SCH ×2 (09:15→21:18)
[2021-06-27] MEDS: cefTRIAXone 1,000 MG in SODIUM CHLORIDE 0.9% 100 ML IV SCH ×2 (12:23→12:57)
[2021-06-27 13:43] LABS: Hematocrit 29.8 VOL% (35.7-47.0); Hemoglobin 8.1 GM/DL (12.0-16.0)
[2021-06-27] MEDS: ATORVASTATIN 10 MG TABLET PO SCH (21:17)
[2021-06-28] MEDS: ALBUTEROL/IPRATROPIUM 3 ML NEB RESP TX SCH ×4 (03:18→11:20)
[2021-06-28] MEDS: LEVOTHYROXINE 100 MCG TABLET PO SCH (05:38)
[2021-06-28] MEDS: POTASSIUM CHLORIDE 10 MEQ TABLET PO SCH (09:04)
[2021-06-28] MEDS: SOTALOL 80 MG TABLET PO SCH (09:04)
[2021-06-28] MEDS: GABAPENTIN 300 MG CAPSULE PO SCH (09:05)
[2021-06-28] MEDS: MAGNESIUM CHLORIDE 64 MG TABLET PO SCH (09:05)
[2021-06-28] MEDS: PANTOPRAZOLE 40 MG TABLET PO SCH (09:05)
[2021-06-28] MEDS: DOCUSATE SODIUM 100 MG CAPSULE PO SCH (09:05)
[2021-06-28] MEDS: FUROSEMIDE 40 MG TABLET PO SCH (09:05)
[2021-06-28] MEDS: BUDESONIDE/FORMOTEROL 160-4.5 INHALER 6 GM INH SCH (09:05)
[2021-06-28] MEDS: ASPIRIN EC 81 MG TABLET PO SCH (09:05)
[2021-06-28] MEDS: predniSONE 20 MG TABLET PO SCH (09:05)
[2021-06-28] MEDS: SPIRONOLACTONE 25 MG TABLET PO SCH (09:05)
[2021-06-28] MEDS: ASCORBIC ACID 500 MG TABLET PO SCH (09:05)
[2021-06-28 09:06] LABS: Calcium 8.8 MG/DL (8.5-10.1); Osmolality,Calculated 277.7 MOS/KG (273-304); Potassium 3.8 MMOL/L (3.5-5.1)
[2021-06-28 09:09] LABS: Basophils % 0.3 % (0.0-0.8); Eosinophils # 0.1 10*3/uL (0.0-0.87); Eosinophils % 0.5 % (0.00-10.9); Hematocrit 29.5 VOL% (35.7-47.0); Immature Granulocytes Absolute 0.16 #; Lymphocytes # 1.5 10*3/uL (1.4-4.0); Lymphocytes % 9.2 % (21.3-54.2); Mean Corpuscular HGB Conc 27.1 GM/DL (32-36); Mean Corpuscular Volume 75.3 FL (87-102); Mean Platelet Volume 10.9 FL (9.6-12.0); Monocytes % 6.3 % (1.7-12.7); Neutrophils % 82.7 % (38.7-73.9); Red Blood Count 3.92 MC/CUMM (3.8-5.5); Red Cell Distribution Width 18.4 % (9.3-17.3)
[2021-06-28] MEDS: INSULIN REGULAR 100 UNIT/ML SUBCUT SCH ×2 (09:09→11:52)
[2021-06-28 09:10] LABS: Platelet Count 365 T/CUMM (130-400); White Blood Count 15.9 T/CUMM (4-12)
[2021-06-28] MEDS: BIOTIN PO SCH (09:10)
[2021-06-28] MEDS: CYANOCOBALAMIN 5000 MCG PO SCH (09:10)
[2021-06-28] MEDS: ASCORBIC ACID VITAMIN E BIOTIN PO SCH (09:10)
[2021-06-28] MEDS: SKIN PO SCH (09:10)
[2021-06-28 09:11] LABS: Hypochromia 2+
[2021-06-28 09:12] LABS: Microcytosis 1+; Ovalocytes Few; Platelet Estimate Normal
[2021-06-28] MEDS: POTASSIUM BICARB EFFERVESCENT 20 MEQ TAB.EFF PER TUBE PRN (11:20)
[2021-06-28 11:38] VITALS: BP 97/66
[2021-06-28] MEDS: cefTRIAXone 1,000 MG in SODIUM CHLORIDE 0.9% 100 ML IV SCH ×2 (12:04→12:41)
== END 2021-06-28 13:01 | disposition home health service (06) | DRG 189 ==
LOC: N.ED 07:24 → N.EDINP 11:04 → N.TELEN 21:00
PROVIDERS: ADMIT Family Medicine; ATTEND Family Medicine

== ENCOUNTER 2021-11-09 05:57 | Inpatient (IN) ==
[2021-11-09] MEDS ORDERED: ALBUTEROL/IPRATROPIUM 3 ML NEB RESP TX STA (06:37)
[2021-11-09] MEDS ORDERED: FUROSEMIDE 100 MG/10 ML VIAL IV STA (06:37)
[2021-11-09 07:02] LABS: Basophils # 0.1 10*3/uL (0.0-0.2); Basophils % 1.1 % (0.0-0.8); Eosinophils # 0.5 10*3/uL (0.0-0.87); Eosinophils % 5.5 % (0.00-10.9); Immature Granulocytes % 0.3 %; Immature Granulocytes Absolute 0.03 #; Lymphocytes # 1.3 10*3/uL (1.4-4.0); Lymphocytes % 14.5 % (21.3-54.2); Mean Corpuscular HGB Conc 26.9 GM/DL (32-36); Mean Corpuscular Volume 71.9 FL (87-102); Mean Platelet Volume 11.2 FL (9.6-12.0); Monocytes # 0.7 10*3/uL (0.11-0.8); Neutrophils % 70.6 % (38.7-73.9); Platelet Count 307 T/CUMM (130-400); Red Blood Count 4.45 MC/CUMM (3.8-5.5); Red Cell Distribution Width 18.6 % (9.3-17.3); White Blood Count 8.7 T/CUMM (4-12)
[2021-11-09 07:03] LABS: Hemoglobin 8.6 GM/DL (12.0-16.0)
[2021-11-09 07:09] LABS: Hypochromia 1+; Microcytosis 1+; Ovalocytes Few; Platelet Estimate Normal; Polychromasia Slight
[2021-11-09 07:19] LABS: Albumin 3.4 G/DL (3.4-5.0); Bilirubin,Total 0.6 MG/DL (0.20-1.00); Calcium 9.2 MG/DL (8.5-10.1); Potassium 3.9 MMOL/L (3.5-5.1); Total Protein 6.8 G/DL (6.4-8.2)
[2021-11-09 07:29] LABS: Bilirubin,Urine Negative (Negative); Blood, Urine Trace mg/dL (Negative); Glucose,Urine (UA) Negative (Negative); Ketones,Urine Negative (Negative); Nitrite,Urine Negative (Negative); Protein,Urine Negative (Negative); RBC,Urine 2 /HPF (0-4); Squamous Epithelial Cell,Urine Occasional /HPF (0-10); Urine Appearance Clear (Clear); Urine Color Yellow (Yellow); Urine Specific Gravity 1.015 (1.001-1.035); Urine Urobilinogen 0.2 eU/dL (<2.0)
[2021-11-09] MEDS ORDERED: ACETAMINOPHEN 325 MG TABLET PO PRN (11:31)
[2021-11-09] MEDS ORDERED: ONDANSETRON 4 MG/2 ML VIAL IV PRN (11:31)
[2021-11-09] MEDS ORDERED: SODIUM CHLORIDE 0.9% 1,000 ML IV SCH (11:31)
[2021-11-09] MEDS ORDERED: BUDESONIDE/FORMOTEROL 160-4.5 INHALER 6 GM INH PRN (13:03)
[2021-11-09] MEDS ORDERED: hydrALAZINE 20 MG/1 ML VIAL IV PRN (15:44)
[2021-11-09] MEDS: cefTRIAXone 1,000 MG in SODIUM CHLORIDE 0.9% 100 ML IV SCH (16:53)
[2021-11-09] MEDS: ALBUTEROL/IPRATROPIUM 3 ML NEB RESP TX SCH (19:30)
[2021-11-09] MEDS: SOTALOL 80 MG TABLET PO SCH (20:45)
[2021-11-09] MEDS: DOCUSATE SODIUM 100 MG CAPSULE PO SCH (20:45)
[2021-11-09] MEDS: ASCORBIC ACID 500 MG TABLET PO SCH (20:46)
[2021-11-09] MEDS: APIXABAN 5 MG TABLET PO SCH (20:46)
[2021-11-09] MEDS: ATORVASTATIN 10 MG TABLET PO SCH (20:47)
[2021-11-10] MEDS: ALBUTEROL/IPRATROPIUM 3 ML NEB RESP TX SCH ×7 (00:10→23:00)
[2021-11-10 05:04] LABS: Calcium 8.7 MG/DL (8.5-10.1); Osmolality,Calculated 279.3 MOS/KG (273-304); Potassium 3.2 MMOL/L (3.5-5.1)
[2021-11-10 05:19] LABS: Basophils # 0.1 10*3/uL (0.0-0.2); Basophils % 0.7 % (0.0-0.8); Eosinophils # 0.5 10*3/uL (0.0-0.87); Eosinophils % 6.1 % (0.00-10.9); Hemoglobin 7.8 GM/DL (12.0-16.0); Immature Granulocytes % 0.3 %; Immature Granulocytes Absolute 0.02 #; Lymphocytes # 1.3 10*3/uL (1.4-4.0); Mean Corpuscular HGB Conc 27.3 GM/DL (32-36); Mean Platelet Volume 11.6 FL (9.6-12.0); Monocytes # 0.7 10*3/uL (0.11-0.8); Monocytes % 8.7 % (1.7-12.7); Neutrophils % 67.2 % (38.7-73.9); Platelet Count 253 T/CUMM (130-400); Red Blood Count 3.97 MC/CUMM (3.8-5.5); Red Cell Distribution Width 18.2 % (9.3-17.3); White Blood Count 7.6 T/CUMM (4-12)
[2021-11-10 05:20] LABS: Hematocrit 28.6 VOL% (35.7-47.0)
[2021-11-10] MEDS ORDERED: FUROSEMIDE 40 MG TABLET PO SCH (09:00)
[2021-11-10] MEDS ORDERED: FUROSEMIDE 40 MG/4 ML VIAL IV SCH ×2 (09:00→16:00)
[2021-11-10] MEDS ORDERED: PANTOPRAZOLE 40 MG TABLET PO SCH (09:00)
[2021-11-10] MEDS ORDERED: ERGOCALCIFEROL 50,000 UNIT CAPSULE PO SCH (09:00)
[2021-11-10] MEDS: APIXABAN 5 MG TABLET PO SCH ×2 (09:22→21:10)
[2021-11-10] MEDS: SOTALOL 80 MG TABLET PO SCH ×2 (09:23→21:09)
[2021-11-10] MEDS: LEVOTHYROXINE 88 MCG TABLET PO SCH (09:23)
[2021-11-10] MEDS: POTASSIUM CHLORIDE 20 MEQ TABLET PO SCH (09:23)
[2021-11-10] MEDS: ASCORBIC ACID 500 MG TABLET PO SCH ×2 (09:23→21:10)
[2021-11-10] MEDS: SPIRONOLACTONE 25 MG TABLET PO SCH (09:23)
[2021-11-10] MEDS: PANTOPRAZOLE 40 MG TABLET PO SCH (09:23)
[2021-11-10] MEDS: ASPIRIN EC 81 MG TABLET PO SCH (09:23)
[2021-11-10] MEDS: MAGNESIUM CHLORIDE 64 MG TABLET PO SCH (09:23)
[2021-11-10] MEDS: DOCUSATE SODIUM 100 MG CAPSULE PO SCH ×2 (09:23→21:10)
[2021-11-10] MEDS: FUROSEMIDE 40 MG/4 ML VIAL IV SCH ×2 (09:24→15:57)
[2021-11-10] MEDS: CYANOCOBALAMIN 5000 MCG PO SCH (09:42)
[2021-11-10] MEDS: cefTRIAXone 1,000 MG in SODIUM CHLORIDE 0.9% 100 ML IV SCH (15:57)
[2021-11-10] MEDS: methylPREDNISolone SOD SUC 40 MG/1 ML VIAL IV SCH (15:57)
[2021-11-10] MEDS: ATORVASTATIN 10 MG TABLET PO SCH (21:10)
[2021-11-11] MEDS: ALBUTEROL/IPRATROPIUM 3 ML NEB RESP TX SCH ×6 (03:04→23:40)
[2021-11-11] MEDS: methylPREDNISolone SOD SUC 40 MG/1 ML VIAL IV SCH ×2 (03:05→16:31)
[2021-11-11 05:17] LABS: Calcium 8.5 MG/DL (8.5-10.1); Osmolality,Calculated 280.4 MOS/KG (273-304); Potassium 3.4 MMOL/L (3.5-5.1); Risk Ratio 2.21; VLDL Cholesterol 8.2 MG/DL
[2021-11-11 05:32] LABS: Basophils % 0.5 % (0.0-0.8); Eosinophils # 0.2 10*3/uL (0.0-0.87); Eosinophils % 2.9 % (0.00-10.9); Hematocrit 28.2 VOL% (35.7-47.0); Hemoglobin 7.6 GM/DL (12.0-16.0); Immature Granulocytes % 0.5 %; Immature Granulocytes Absolute 0.04 #; Lymphocytes # 1.2 10*3/uL (1.4-4.0); Lymphocytes % 14.8 % (21.3-54.2); Mean Corpuscular Volume 72.3 FL (87-102); Mean Platelet Volume 11.5 FL (9.6-12.0); Monocytes # 0.6 10*3/uL (0.11-0.8); Monocytes % 7.1 % (1.7-12.7); Neutrophils % 74.2 % (38.7-73.9); Platelet Count 249 T/CUMM (130-400); Red Cell Distribution Width 18.2 % (9.3-17.3); White Blood Count 7.9 T/CUMM (4-12)
[2021-11-11 05:53] LABS: Platelet Estimate Normal
[2021-11-11 05:55] LABS: Hypochromia 2+
[2021-11-11 05:56] LABS: Acanthocytes Few; Microcytosis 2+; Poikilocytosis 1+
[2021-11-11] MEDS: LEVOTHYROXINE 88 MCG TABLET PO SCH (06:05)
[2021-11-11] MEDS: PANTOPRAZOLE 40 MG TABLET PO SCH (10:11)
[2021-11-11] MEDS: SPIRONOLACTONE 25 MG TABLET PO SCH (10:11)
[2021-11-11] MEDS: MAGNESIUM CHLORIDE 64 MG TABLET PO SCH (10:11)
[2021-11-11] MEDS: ASCORBIC ACID 500 MG TABLET PO SCH ×2 (10:11→20:34)
[2021-11-11] MEDS: ASPIRIN EC 81 MG TABLET PO SCH (10:12)
[2021-11-11] MEDS: FUROSEMIDE 40 MG TABLET PO SCH ×2 (10:12→16:31)
[2021-11-11] MEDS: APIXABAN 5 MG TABLET PO SCH ×2 (10:12→20:35)
[2021-11-11] MEDS: DOCUSATE SODIUM 100 MG CAPSULE PO SCH ×2 (10:12→20:34)
[2021-11-11] MEDS: SOTALOL 80 MG TABLET PO SCH ×2 (10:12→20:34)
[2021-11-11] MEDS: POTASSIUM CHLORIDE 20 MEQ TABLET PO SCH (10:13)
[2021-11-11] MEDS: CYANOCOBALAMIN 5000 MCG PO SCH (10:16)
[2021-11-11 13:50] LABS: Hematocrit 28.7 VOL% (35.7-47.0); Hemoglobin 7.7 GM/DL (12.0-16.0)
[2021-11-11] MEDS: cefTRIAXone 1,000 MG in SODIUM CHLORIDE 0.9% 100 ML IV SCH (16:32)
[2021-11-11] MEDS ORDERED: SODIUM CHLORIDE 0.9% 1,000 ML IV PRN (16:46)
[2021-11-11] MEDS: ATORVASTATIN 10 MG TABLET PO SCH (20:34)
[2021-11-12] MEDS: ALBUTEROL/IPRATROPIUM 3 ML NEB RESP TX SCH ×3 (03:20→10:12)
[2021-11-12] MEDS: methylPREDNISolone SOD SUC 40 MG/1 ML VIAL IV SCH (03:23)
[2021-11-12] MEDS: LEVOTHYROXINE 88 MCG TABLET PO SCH (05:36)
[2021-11-12 05:42] LABS: Basophils % 0.2 % (0.0-0.8); Eosinophils % 0.1 % (0.00-10.9); Immature Granulocytes % 0.6 %; Immature Granulocytes Absolute 0.07 #; Lymphocytes # 1.1 10*3/uL (1.4-4.0); Lymphocytes % 9.2 % (21.3-54.2); Mean Corpuscular HGB Conc 27.3 GM/DL (32-36); Mean Corpuscular Volume 75.3 FL (87-102); Mean Platelet Volume 11.3 FL (9.6-12.0); Monocytes # 0.9 10*3/uL (0.11-0.8); Monocytes % 7.3 % (1.7-12.7); Neutrophils % 82.6 % (38.7-73.9); Platelet Count 274 T/CUMM (130-400); Red Blood Count 4.38 MC/CUMM (3.8-5.5); Red Cell Distribution Width 18.6 % (9.3-17.3)
[2021-11-12 05:52] LABS: White Blood Count 11.7 T/CUMM (4-12)
[2021-11-12 05:58] LABS: Calcium 8.9 MG/DL (8.5-10.1); Osmolality,Calculated 279.5 MOS/KG (273-304); Potassium 3.4 MMOL/L (3.5-5.1)
[2021-11-12] MEDS: SPIRONOLACTONE 25 MG TABLET PO SCH (08:48)
[2021-11-12] MEDS: ASPIRIN EC 81 MG TABLET PO SCH (08:48)
[2021-11-12] MEDS: SOTALOL 80 MG TABLET PO SCH (08:48)
[2021-11-12] MEDS: POTASSIUM CHLORIDE 20 MEQ TABLET PO SCH (08:48)
[2021-11-12] MEDS: FUROSEMIDE 40 MG TABLET PO SCH (08:48)
[2021-11-12] MEDS: MAGNESIUM CHLORIDE 64 MG TABLET PO SCH (08:48)
[2021-11-12] MEDS: ASCORBIC ACID 500 MG TABLET PO SCH (08:48)
[2021-11-12] MEDS: APIXABAN 5 MG TABLET PO SCH (08:48)
[2021-11-12] MEDS: DOCUSATE SODIUM 100 MG CAPSULE PO SCH (08:48)
[2021-11-12] MEDS: PANTOPRAZOLE 40 MG TABLET PO SCH (08:48)
[2021-11-12] MEDS: CYANOCOBALAMIN 5000 MCG PO SCH (09:16)
[2021-11-12 13:02] VITALS: BP 116/48
== END 2021-11-12 13:10 | disposition home health service (06) | DRG 291 ==
LOC: N.EDINP 05:57 → N.ED 05:57 → N.EDINP 15:01 → N.TELEN 15:02
PROVIDERS: ADMIT Family Medicine; ATTEND Family Medicine